=== PATIENT | female | born 1965 | race Two or more races ===

== ENCOUNTER 2019-11-14 08:08 | Inpatient (IN) | payer MEDICAID, OTHER ==
[~2019-11-14] VITALS: Ht 165.1 cm; Wt 99.3 kg
[2019-11-14] MEDS ORDERED: VANCOMYCIN 1 G PREMIX 200 ML IV ONE (09:00)
[2019-11-14] MEDS ORDERED: SODIUM CHLORIDE 0.9% 1000ML BAG (SEPSIS BOLUS) IV ONE (09:00)
[2019-11-14] MEDS ORDERED: PIPERACILLIN/TAZ 3.375G PREMIX 50 ML IV ONE (09:00)
[2019-11-14 09:17] LABS: BASOPHILS % 0.2 % (0.0-2.0); HEMATOCRIT. 45.9 % (36.0-48.0); HEMOGLOBIN. 16.1 g/dL (12.0-16.0); LYMPHOCYTES % 15.4 % (20.0-50.0); MEAN CORPUSCULAR HEMOGLOBIN 32.5 pg (28.0-32.0); MEAN CORPUSCULAR VOLUME 92.9 fL (81.0-99.0); MEAN PLATELET VOLUME 7.4 fl (7.4-10.4); NEUTROPHILS % 76.4 % (40.0-76.0); PLATELET 327 x1000/uL (130-400); RED BLOOD CELL COUNT 4.94 mill/uL (4.2-5.4); RED CELL DISTRIBUTION WIDTH 13.3 % (11.6-14.6)
[2019-11-14 09:19] LABS: CHLORIDE 105 mEq/L (98-107); PROTHROMBIN TIME 10.9 sec (9.6-11.0)
[2019-11-14 10:11] LABS: CLARITY URINE CLEAR (CLEAR); COLOR URINE YELLOW (YELLOW); KETONES URINE TRACE (NEGATIVE); LEUKOCYTE ESTERASE URINE TRACE (NEGATIVE); NITRITE URINE NEGATIVE (NEGATIVE); OCCULT BLOOD URINE NEGATIVE (NEGATIVE); PROTEIN URINE 2+ (NEGATIVE); SPECIFIC GRAVITY URINE 1.017 (1.005-1.030); UROBILINOGEN URINE 0.2 E.U./dL (0.2-1.0)
[2019-11-14] MEDS: ACETAMINOPHEN 325MG TABLET PO PRN (23:04)
[2019-11-15] MEDS ORDERED: ACETAMINOPHEN 325MG TABLET PO ONE (06:00)
[2019-11-15] MEDS: AZITHROMYCIN 500 MG TABLET PO SCH (10:39)
[2019-11-15] MEDS: ALBUTEROL 6.7GM HFA INHALER ORI SCH (10:54)
[2019-11-15] MEDS ORDERED: CEFTRIAXONE 1 G PREMIX 50 ML IV SCH (11:00)
[2019-11-15] MEDS: ENOXAPARIN 40MG/0.4ML SYR SUBCUT SCH (13:26)
[2019-11-15] MEDS: ACETAMINOPHEN 325MG TABLET PO PRN ×2 (13:27→21:44)
[2019-11-15 13:56] VITALS: BP 152/94
[2019-11-15] MEDS ORDERED: AMLO10TA80 PO (13:59)
[2019-11-15 16:00] VITALS: BP 126/73
[2019-11-15 20:00] VITALS: BP 169/89
[2019-11-15] MEDS: ASCORBIC ACID 500 MG TABLET PO SCH (20:25)
[2019-11-15] MEDS: GUAIFENESIN 600MG ER TABLET PO SCH (20:26)
[2019-11-15] MEDS: AMLODIPINE 5MG TABLET PO SCH (20:26)
[2019-11-15] MEDS: BENZONATATE 100MG CAPSULE PO PRN (21:45)
[2019-11-15] MEDS: METOPROLOL TARTRATE 50MG TABLET PO SCH (23:50)
[2019-11-16] VITALS: BP 140/57
[2019-11-16 04:00] VITALS: BP 123/74
[2019-11-16] MEDS: ACETAMINOPHEN 325MG TABLET PO PRN (04:02)
[2019-11-16 08:00] VITALS: BP 104/60
[2019-11-16] MEDS: AZITHROMYCIN 500 MG TABLET PO SCH (08:54)
[2019-11-16] MEDS: GUAIFENESIN 600MG ER TABLET PO SCH ×2 (08:54→20:22)
[2019-11-16] MEDS: ASCORBIC ACID 500 MG TABLET PO SCH ×2 (08:54→20:22)
[2019-11-16] MEDS: ZINC SULFATE 220 MG ( 50 ) CAPSULE PO SCH (08:55)
[2019-11-16] MEDS: AMLODIPINE 5MG TABLET PO SCH ×2 (09:00→20:21)
[2019-11-16] MEDS: METOPROLOL TARTRATE 50MG TABLET PO SCH ×2 (09:00→20:22)
[2019-11-16] MEDS ORDERED: CEFTRIAXONE 1,000 MG in DEXTROSE 5% WATER 50 ML IV SCH (09:00)
[2019-11-16] MEDS: BENZONATATE 100MG CAPSULE PO PRN (09:09)
[2019-11-16 12:00] VITALS: BP 104/60
[2019-11-16] MEDS: ENOXAPARIN 40MG/0.4ML SYR SUBCUT SCH (13:26)
[2019-11-16] MEDS: DOCUSATE SODIUM 250MG CAPSULE PO SCH (14:08)
[2019-11-16 16:00] VITALS: BP 146/76
[2019-11-16] MEDS: ALBUTEROL 6.7GM HFA INHALER ORI SCH (17:45)
[2019-11-16] MEDS: METHYLPREDNISOLONE SOD SUCC 40 MG/ML VIAL IV SCH (17:45)
[2019-11-16 20:00] VITALS: BP 141/82
[2019-11-17] VITALS (7 sets, daily range): BP systolic 122–134; BP diastolic 65–77
[2019-11-17] MEDS: ALBUTEROL 6.7GM HFA INHALER ORI SCH ×3 (06:00→12:00)
[2019-11-17] MEDS: ASCORBIC ACID 500 MG TABLET PO SCH ×2 (09:44→22:24)
[2019-11-17] MEDS: METHYLPREDNISOLONE SOD SUCC 40 MG/ML VIAL IV SCH ×2 (09:44→16:01)
[2019-11-17] MEDS: CEFTRIAXONE 1 G PREMIX 50 ML IV SCH (09:44)
[2019-11-17] MEDS: METOPROLOL TARTRATE 50MG TABLET PO SCH ×2 (09:45→22:24)
[2019-11-17] MEDS: GUAIFENESIN 600MG ER TABLET PO SCH ×2 (09:45→22:24)
[2019-11-17] MEDS: ZINC SULFATE 220 MG ( 50 ) CAPSULE PO SCH (09:45)
[2019-11-17] MEDS: AMLODIPINE 5MG TABLET PO SCH ×2 (09:45→22:24)
[2019-11-17] MEDS: DOCUSATE SODIUM 250MG CAPSULE PO SCH ×2 (09:45→16:01)
[2019-11-17] MEDS: AZITHROMYCIN 500 MG TABLET PO SCH (09:54)
[2019-11-17] MEDS: ENOXAPARIN 40MG/0.4ML SYR SUBCUT SCH (12:35)
[2019-11-18] VITALS: BP 138/76
[2019-11-18] MEDS: ALBUTEROL 6.7GM HFA INHALER ORI SCH ×4 (00:23→17:39)
[2019-11-18 04:00] VITALS: BP 122/78
[2019-11-18 05:38] LABS: HEMATOCRIT. 42.7 % (36.0-48.0); HEMOGLOBIN. 14.9 g/dL (12.0-16.0); LYMPHOCYTES % 10.8 % (20.0-50.0); MEAN CORPUSCULAR VOLUME 92.1 fL (81.0-99.0); MONOCYTES % 10.1 % (2.0-8.0); NEUTROPHILS % 79.1 % (40.0-76.0); PLATELET 392 x1000/uL (130-400); RED BLOOD CELL COUNT 4.64 mill/uL (4.2-5.4); RED CELL DISTRIBUTION WIDTH 13.2 % (11.6-14.6)
[2019-11-18 05:54] LABS: CHLORIDE 107 mEq/L (98-107)
[2019-11-18 06:01] LABS: PHOSPHORUS 3.4 mg/dL (2.5-4.9)
[2019-11-18 08:00] VITALS: BP 132/74
[2019-11-18] MEDS: DOCUSATE SODIUM 250MG CAPSULE PO SCH ×2 (08:06→17:40)
[2019-11-18] MEDS: AZITHROMYCIN 500 MG TABLET PO SCH (08:06)
[2019-11-18] MEDS: METHYLPREDNISOLONE SOD SUCC 40 MG/ML VIAL IV SCH ×2 (08:06→17:40)
[2019-11-18] MEDS: GUAIFENESIN 600MG ER TABLET PO SCH ×2 (08:06→21:01)
[2019-11-18] MEDS: ZINC SULFATE 220 MG ( 50 ) CAPSULE PO SCH (08:06)
[2019-11-18] MEDS: METOPROLOL TARTRATE 50MG TABLET PO SCH ×2 (08:06→21:01)
[2019-11-18] MEDS: ASCORBIC ACID 500 MG TABLET PO SCH ×2 (08:07→21:01)
[2019-11-18] MEDS: AMLODIPINE 5MG TABLET PO SCH ×2 (08:07→21:01)
[2019-11-18] MEDS: CEFTRIAXONE 1 G PREMIX 50 ML IV SCH (08:07)
[2019-11-18 12:00] VITALS: BP 113/66
[2019-11-18] MEDS: ENOXAPARIN 40MG/0.4ML SYR SUBCUT SCH (12:01)
[2019-11-18 16:00] VITALS: BP 133/63
[2019-11-18 16:37] LABS: BG BASE EXCESS -0.6 mmol/L (-2.0-2.0); BG CARBOXYHEMOGLOBIN 0.3 % (0.5-1.5); BG DEOXYHEMOGLOBIN 4.1 % (0.0-5.0); BG FRACTION INSPIRED OXYGEN 100; BG HCO3 ACT 23.2 mmol/L (22.0-26.0); BG METHEMOGLOBIN 0.3 % (0.0-1.5); BG OXYGEN SATURATION 95.9 % (92.0-98.5); BG OXYHEMOGLOBIN 95.3 % (94.0-97.0); BG PCO2 35.9 mmHg (35.0-45.0); BG PH 7.428 (7.350-7.450); BG SAMPLE SITE LEFT RADIAL; BG TOTAL HEMOGLOBIN 15.5 g/dL (12.0-18.0); BG VENT MODE MASK - NRB
[2019-11-18 20:00] VITALS: BP 148/72
[2019-11-19] VITALS (56 sets, daily range): BP systolic 70–184; BP diastolic 24–95
[2019-11-19] MEDS: ALBUTEROL 6.7GM HFA INHALER ORI SCH ×2 (00:16→05:56)
[2019-11-19] MEDS: METHYLPREDNISOLONE SOD SUCC 40 MG/ML VIAL IV SCH ×2 (09:52→17:50)
[2019-11-19] MEDS: GUAIFENESIN 600MG ER TABLET PO SCH (09:52)
[2019-11-19] MEDS: AZITHROMYCIN 500 MG TABLET PO SCH (09:52)
[2019-11-19] MEDS: METOPROLOL TARTRATE 50MG TABLET PO SCH ×2 (09:53→20:24)
[2019-11-19] MEDS ORDERED: MORPHINE SULFATE 2 MG/ML CPJ (NOT FOR IM USE) IV PRN (10:15)
[2019-11-19] MEDS ORDERED: PROPOFOL 10MG/ML 100ML 100 ML IV PRN (10:15)
[2019-11-19] MEDS: CEFTRIAXONE 1 G PREMIX 50 ML IV SCH (10:30)
[2019-11-19] MEDS: AMLODIPINE 5MG TABLET PO SCH ×2 (10:30→20:25)
[2019-11-19] MEDS: DOCUSATE SODIUM 250MG CAPSULE PO SCH ×2 (10:30→17:00)
[2019-11-19] MEDS: ASCORBIC ACID 500 MG TABLET PO SCH ×2 (10:31→21:19)
[2019-11-19] MEDS: ZINC SULFATE 220 MG ( 50 ) CAPSULE PO SCH (11:00)
[2019-11-19] MEDS: ENOXAPARIN 80MG/0.8ML SYR SUBCUT SCH ×2 (11:05→22:20)
[2019-11-19] MEDS ORDERED: LIDOCAINE HCL 1% 20ML VIAL (Pyxis) INJ ONE (13:07)
[2019-11-19 13:20] LABS: BG BASE EXCESS -3.9 mmol/L (-2.0-2.0); BG CARBOXYHEMOGLOBIN 0.3 % (0.5-1.5); BG DEOXYHEMOGLOBIN 8.1 % (0.0-5.0); BG FRACTION INSPIRED OXYGEN 100; BG HCO3 ACT 19.9 mmol/L (22.0-26.0); BG METHEMOGLOBIN 0.1 % (0.0-1.5); BG OXYGEN SATURATION 91.9 % (92.0-98.5); BG OXYHEMOGLOBIN 91.5 % (94.0-97.0); BG PH 7.399 (7.350-7.450); BG PO2 63.7 mmHg (75.0-100.0); BG SAMPLE SITE RIGHT RADIAL; BG TIDAL VOLUME(mL) 500 mL; BG TOTAL HEMOGLOBIN 14.6 g/dL (12.0-18.0); BG VENT MODE VENT - A/C; BG VENT RATE 18 set
[2019-11-19] MEDS: FENTANYL CITRATE/PF 1,000 MCG in SODIUM CHLORIDE 0.9% 80 ML IV PRN (14:42)
[2019-11-19] MEDS: MIDAZOLAM HCL 100 MG in DEXT 5% WATER 80 ML IV PRN (14:51)
[2019-11-19] MEDS: NOREPINEPHRINE 8 MG in DEXT 5% WATER 242 ML IV PRN (16:00)
[2019-11-19 17:54] LABS: HEMATOCRIT. 42.6 % (36.0-48.0); HEMOGLOBIN. 14.6 g/dL (12.0-16.0); MEAN CORPUSCULAR VOLUME 93.2 fL (81.0-99.0); MEAN PLATELET VOLUME 7.2 fl (7.4-10.4); PLATELET 429 x1000/uL (130-400); RED BLOOD CELL COUNT 4.57 mill/uL (4.2-5.4); RED CELL DISTRIBUTION WIDTH 13.4 % (11.6-14.6)
[2019-11-19 18:03] LABS: CHLORIDE 105 mEq/L (98-107)
[2019-11-19 20:33] LABS: NUCLEATED RED BLOOD CELLS 1 /100 WBC; PLATELET ESTIMATE NORMAL
[2019-11-20] VITALS (87 sets, daily range): BP systolic 101–165; BP diastolic 55–86
[2019-11-20] MEDS: MIDAZOLAM HCL 100 MG in DEXT 5% WATER 80 ML IV PRN (07:04)
[2019-11-20] MEDS: AMLODIPINE 5MG TABLET PO SCH ×2 (08:18→20:42)
[2019-11-20] MEDS: METOPROLOL TARTRATE 50MG TABLET PO SCH ×2 (08:18→20:42)
[2019-11-20] MEDS: DOCUSATE SODIUM 250MG CAPSULE PO SCH ×2 (08:18→17:00)
[2019-11-20] MEDS: METHYLPREDNISOLONE SOD SUCC 40 MG/ML VIAL IV SCH ×2 (08:19→17:26)
[2019-11-20] MEDS: ASCORBIC ACID 500 MG TABLET PO SCH ×2 (08:19→20:43)
[2019-11-20] MEDS: AZITHROMYCIN 500 MG TABLET PO SCH (08:19)
[2019-11-20] MEDS: ZINC SULFATE 220 MG ( 50 ) CAPSULE PO SCH (08:19)
[2019-11-20] MEDS: ENOXAPARIN 80MG/0.8ML SYR SUBCUT SCH ×2 (08:20→20:43)
[2019-11-20] MEDS ORDERED: LIDOCAINE HCL/PF 1% 2ML VIAL ONE (11:40)
[2019-11-20 12:09] LABS: BG BASE EXCESS -3.2 mmol/L (-2.0-2.0); BG CARBOXYHEMOGLOBIN 0.3 % (0.5-1.5); BG DEOXYHEMOGLOBIN 0.9 % (0.0-5.0); BG METHEMOGLOBIN 0.3 % (0.0-1.5); BG OXYGEN SATURATION 99.1 % (92.0-98.5); BG OXYHEMOGLOBIN 98.5 % (94.0-97.0); BG PCO2 35.1 mmHg (35.0-45.0); BG PH 7.394 (7.350-7.450); BG PO2 207.7 mmHg (75.0-100.0); BG SAMPLE SITE RIGHT RADIAL; BG TIDAL VOLUME(mL) 500 mL; BG VENT MODE VENT - A/C; BG VENT RATE 18 set
[2019-11-20] MEDS: FENTANYL CITRATE/PF 1,000 MCG in SODIUM CHLORIDE 0.9% 80 ML IV PRN (14:00)
[2019-11-20] MEDS: MIDODRINE HCL 5MG TABLET PO SCH (19:27)
[2019-11-21] VITALS (67 sets, daily range): BP systolic 85–152; BP diastolic 39–83
[2019-11-21] MEDS: MIDAZOLAM HCL 100 MG in DEXT 5% WATER 80 ML IV PRN ×2 (01:25→16:39)
[2019-11-21 05:51] LABS: BASOPHILS % 0.2 % (0.0-2.0); HEMATOCRIT. 38.8 % (36.0-48.0); HEMOGLOBIN. 13.3 g/dL (12.0-16.0); LYMPHOCYTES % 7.5 % (20.0-50.0); MEAN CORPUSCULAR HEMOGLOBIN 31.8 pg (28.0-32.0); MEAN PLATELET VOLUME 7.1 fl (7.4-10.4); NEUTROPHILS % 85.3 % (40.0-76.0); PLATELET 363 x1000/uL (130-400); RED BLOOD CELL COUNT 4.17 mill/uL (4.2-5.4); RED CELL DISTRIBUTION WIDTH 12.8 % (11.6-14.6)
[2019-11-21 06:07] LABS: CHLORIDE 109 mEq/L (98-107)
[2019-11-21] MEDS: AMLODIPINE 5MG TABLET PO SCH ×2 (08:16→21:55)
[2019-11-21] MEDS: METOPROLOL TARTRATE 50MG TABLET PO SCH ×2 (08:16→21:55)
[2019-11-21] MEDS: DOCUSATE SODIUM 250MG CAPSULE PO SCH ×2 (08:17→17:00)
[2019-11-21 08:23] LABS: BG BASE EXCESS 0.1 mmol/L (-2.0-2.0); BG DEOXYHEMOGLOBIN 7.5 % (0.0-5.0); BG HCO3 ACT 24.8 mmol/L (22.0-26.0); BG METHEMOGLOBIN 0.2 % (0.0-1.5); BG OXYGEN SATURATION 92.5 % (92.0-98.5); BG OXYHEMOGLOBIN 92.3 % (94.0-97.0); BG PCO2 40.3 mmHg (35.0-45.0); BG PH 7.407 (7.350-7.450); BG PO2 64.2 mmHg (75.0-100.0); BG SAMPLE SITE RIGHT RADIAL; BG TIDAL VOLUME(mL) 500 mL; BG TOTAL HEMOGLOBIN 12.4 g/dL (12.0-18.0); BG VENT MODE VENT - A/C; BG VENT RATE 18 set
[2019-11-21] MEDS: ZINC SULFATE 220 MG ( 50 ) CAPSULE PO SCH (09:59)
[2019-11-21] MEDS: AZITHROMYCIN 500 MG TABLET PO SCH (09:59)
[2019-11-21] MEDS: PANTOPRAZOLE SODIUM 40 MG/VIAL IV SCH (09:59)
[2019-11-21] MEDS: METHYLPREDNISOLONE SOD SUCC 40 MG/ML VIAL IV SCH ×2 (09:59→17:57)
[2019-11-21] MEDS: MIDODRINE HCL 5MG TABLET PO SCH ×3 (09:59→17:57)
[2019-11-21] MEDS: ENOXAPARIN 80MG/0.8ML SYR SUBCUT SCH ×2 (10:00→21:55)
[2019-11-21] MEDS: ASCORBIC ACID 500 MG TABLET PO SCH ×2 (10:03→21:55)
[2019-11-21] MEDS: FENTANYL CITRATE/PF 1,000 MCG in SODIUM CHLORIDE 0.9% 80 ML IV PRN (14:00)
[2019-11-22] VITALS (81 sets, daily range): BP systolic 94–157; BP diastolic 29–84
[2019-11-22 04:54] LABS: HEMATOCRIT. 36.1 % (36.0-48.0); HEMOGLOBIN. 12.5 g/dL (12.0-16.0); MEAN CORPUSCULAR HEMOGLOBIN 32.6 pg (28.0-32.0); MEAN CORPUSCULAR VOLUME 93.7 fL (81.0-99.0); MEAN PLATELET VOLUME 7.2 fl (7.4-10.4); PLATELET 332 x1000/uL (130-400); RED BLOOD CELL COUNT 3.85 mill/uL (4.2-5.4); RED CELL DISTRIBUTION WIDTH 12.8 % (11.6-14.6)
[2019-11-22 05:04] LABS: CHLORIDE 108 mEq/L (98-107)
[2019-11-22 07:22] LABS: PLATELET ESTIMATE NORMAL
[2019-11-22] MEDS: METOPROLOL TARTRATE 50MG TABLET PO SCH (09:00)
[2019-11-22] MEDS: AMLODIPINE 5MG TABLET PO SCH (09:00)
[2019-11-22] MEDS: ENOXAPARIN 80MG/0.8ML SYR SUBCUT SCH ×2 (09:02→21:19)
[2019-11-22] MEDS: ZINC SULFATE 220 MG ( 50 ) CAPSULE PO SCH (09:03)
[2019-11-22] MEDS: ASCORBIC ACID 500 MG TABLET PO SCH ×2 (09:03→21:20)
[2019-11-22] MEDS: METHYLPREDNISOLONE SOD SUCC 40 MG/ML VIAL IV SCH ×2 (09:03→16:40)
[2019-11-22] MEDS: MIDODRINE HCL 5MG TABLET PO SCH (09:03)
[2019-11-22] MEDS: DOCUSATE SODIUM 250MG CAPSULE PO SCH ×2 (09:04→16:40)
[2019-11-22] MEDS: AZITHROMYCIN 500 MG TABLET PO SCH (09:04)
[2019-11-22 09:33] LABS: BG BASE EXCESS 2.1 mmol/L (-2.0-2.0); BG CARBOXYHEMOGLOBIN 0.2 % (0.5-1.5); BG DEOXYHEMOGLOBIN 8.7 % (0.0-5.0); BG FRACTION INSPIRED OXYGEN 60; BG HCO3 ACT 26.8 mmol/L (22.0-26.0); BG METHEMOGLOBIN 0.1 % (0.0-1.5); BG OXYGEN SATURATION 91.3 % (92.0-98.5); BG PCO2 42.1 mmHg (35.0-45.0); BG PH 7.421 (7.350-7.450); BG PO2 61.7 mmHg (75.0-100.0); BG SAMPLE SITE RIGHT RADIAL; BG TIDAL VOLUME(mL) 500 mL; BG VENT MODE VENT - A/C; BG VENT RATE 18 set
[2019-11-22] MEDS: PANTOPRAZOLE SODIUM 40 MG/VIAL IV SCH (09:53)
[2019-11-22] MEDS: FENTANYL CITRATE/PF 1,000 MCG in SODIUM CHLORIDE 0.9% 80 ML IV PRN (12:48)
[2019-11-22] MEDS: MIDAZOLAM HCL 100 MG in DEXT 5% WATER 80 ML IV PRN (12:51)
[2019-11-23] VITALS (96 sets, daily range): BP systolic 91–127; BP diastolic 47–79
[2019-11-23] MEDS: FENTANYL CITRATE/PF 1,000 MCG in SODIUM CHLORIDE 0.9% 80 ML IV PRN ×2 (02:51→14:28)
[2019-11-23] MEDS: MIDAZOLAM HCL 100 MG in DEXT 5% WATER 80 ML IV PRN ×2 (02:52→15:17)
[2019-11-23 05:42] LABS: BASOPHILS % 0.2 % (0.0-2.0); HEMATOCRIT. 36.2 % (36.0-48.0); HEMOGLOBIN. 12.6 g/dL (12.0-16.0); LYMPHOCYTES % 7.8 % (20.0-50.0); MEAN CORPUSCULAR HEMOGLOBIN 32.8 pg (28.0-32.0); MEAN CORPUSCULAR VOLUME 93.9 fL (81.0-99.0); MEAN PLATELET VOLUME 7.3 fl (7.4-10.4); MONOCYTES % 6.2 % (2.0-8.0); NEUTROPHILS % 85.8 % (40.0-76.0); PLATELET 353 x1000/uL (130-400); RED BLOOD CELL COUNT 3.85 mill/uL (4.2-5.4); RED CELL DISTRIBUTION WIDTH 12.8 % (11.6-14.6)
[2019-11-23 05:58] LABS: CHLORIDE 110 mEq/L (98-107)
[2019-11-23 08:57] LABS: BG CARBOXYHEMOGLOBIN 0.5 % (0.5-1.5); BG DEOXYHEMOGLOBIN 8.5 % (0.0-5.0); BG HCO3 ACT 25.3 mmol/L (22.0-26.0); BG METHEMOGLOBIN 0.1 % (0.0-1.5); BG OXYGEN SATURATION 91.4 % (92.0-98.5); BG OXYHEMOGLOBIN 90.9 % (94.0-97.0); BG PCO2 43.3 mmHg (35.0-45.0); BG PH 7.384 (7.350-7.450); BG PO2 63.8 mmHg (75.0-100.0); BG SAMPLE SITE RIGHT RADIAL; BG TIDAL VOLUME(mL) 500 mL; BG TOTAL HEMOGLOBIN 13.7 g/dL (12.0-18.0); BG VENT MODE VENT - A/C; BG VENT RATE 18 set
[2019-11-23] MEDS: ASCORBIC ACID 500 MG TABLET PO SCH ×2 (09:31→21:17)
[2019-11-23] MEDS: ZINC SULFATE 220 MG ( 50 ) CAPSULE PO SCH (09:31)
[2019-11-23] MEDS: METHYLPREDNISOLONE SOD SUCC 40 MG/ML VIAL IV SCH ×2 (09:31→16:18)
[2019-11-23] MEDS: DOCUSATE SODIUM 250MG CAPSULE PO SCH (09:31)
[2019-11-23] MEDS: PANTOPRAZOLE SODIUM 40 MG/VIAL IV SCH (09:31)
[2019-11-23] MEDS: ENOXAPARIN 80MG/0.8ML SYR SUBCUT SCH (09:32)
[2019-11-23] MEDS ORDERED: ACETYLCYSTEINE 100MG/ML 10% VIAL 4ML INH SCH (12:00)
[2019-11-23] MEDS ORDERED: LACTULOSE 20G/30ML UDC PO NR (13:00)
[2019-11-23] MEDS ORDERED: ENOXAPARIN 100MG/ML SYR SUBCUT SCH (21:00)
[2019-11-24] VITALS (90 sets, daily range): BP systolic 98–125; BP diastolic 52–77
[2019-11-24] MEDS: MIDAZOLAM HCL 100 MG in DEXT 5% WATER 80 ML IV PRN ×3 (03:48→21:54)
[2019-11-24] MEDS: FENTANYL CITRATE/PF 1,000 MCG in SODIUM CHLORIDE 0.9% 80 ML IV PRN ×2 (03:50→11:22)
[2019-11-24 06:00] LABS: HEMATOCRIT. 36.1 % (36.0-48.0); HEMOGLOBIN. 12.2 g/dL (12.0-16.0); MEAN CORPUSCULAR HEMOGLOBIN 31.9 pg (28.0-32.0); MEAN CORPUSCULAR VOLUME 94.4 fL (81.0-99.0); MEAN PLATELET VOLUME 7.3 fl (7.4-10.4); PLATELET 350 x1000/uL (130-400); RED BLOOD CELL COUNT 3.82 mill/uL (4.2-5.4); RED CELL DISTRIBUTION WIDTH 12.8 % (11.6-14.6)
[2019-11-24 06:02] LABS: CHLORIDE 110 mEq/L (98-107)
[2019-11-24 06:12] LABS: CREATINE KINASE 22 IU/L (26-192)
[2019-11-24 07:32] LABS: PLATELET ESTIMATE NORMAL
[2019-11-24 08:56] LABS: BG BASE EXCESS -0.5 mmol/L (-2.0-2.0); BG CARBOXYHEMOGLOBIN 0.3 % (0.5-1.5); BG DEOXYHEMOGLOBIN 7.2 % (0.0-5.0); BG FRACTION INSPIRED OXYGEN 90; BG METHEMOGLOBIN 0.3 % (0.0-1.5); BG OXYGEN SATURATION 92.8 % (92.0-98.5); BG OXYHEMOGLOBIN 92.2 % (94.0-97.0); BG PCO2 44.1 mmHg (35.0-45.0); BG PH 7.371 (7.350-7.450); BG PO2 66.6 mmHg (75.0-100.0); BG SAMPLE SITE RIGHT RADIAL; BG TIDAL VOLUME(mL) 450 mL; BG VENT MODE VENT - A/C; BG VENT RATE 20 set
[2019-11-24] MEDS: METHYLPREDNISOLONE SOD SUCC 40 MG/ML VIAL IV SCH ×2 (09:04→17:27)
[2019-11-24] MEDS: PANTOPRAZOLE SODIUM 40 MG/VIAL IV SCH (09:04)
[2019-11-24] MEDS: DOCUSATE SODIUM SUGAR FREE 100MG/10ML UDC NG SCH (09:04)
[2019-11-24] MEDS: ASCORBIC ACID 500 MG TABLET PO SCH ×2 (09:04→21:05)
[2019-11-24] MEDS: ZINC SULFATE 220 MG ( 50 ) CAPSULE PO SCH (09:04)
[2019-11-24] MEDS: ENOXAPARIN 80MG/0.8ML SYR SUBCUT SCH ×2 (09:05→21:05)
[2019-11-24] MEDS ORDERED: SORBITOL 70% SOLN 30ML PO NR (10:45)
[2019-11-24] MEDS: METOCLOPRAMIDE HCL 10MG/2ML VIAL IV SCH ×2 (11:42→17:27)
[2019-11-25] VITALS (36 sets, daily range): BP systolic 72–133; BP diastolic 32–80
[2019-11-25] MEDS: METOCLOPRAMIDE HCL 10MG/2ML VIAL IV SCH ×5 (00:03→23:29)
[2019-11-25] MEDS: FENTANYL CITRATE/PF 1,000 MCG in SODIUM CHLORIDE 0.9% 80 ML IV PRN ×3 (00:18→22:07)
[2019-11-25 05:45] LABS: HEMATOCRIT. 34.3 % (36.0-48.0); HEMOGLOBIN. 11.8 g/dL (12.0-16.0); MEAN CORPUSCULAR HEMOGLOBIN 32.4 pg (28.0-32.0); MEAN CORPUSCULAR VOLUME 93.9 fL (81.0-99.0); MEAN PLATELET VOLUME 7.5 fl (7.4-10.4); PLATELET 343 x1000/uL (130-400); RED BLOOD CELL COUNT 3.65 mill/uL (4.2-5.4); RED CELL DISTRIBUTION WIDTH 12.8 % (11.6-14.6)
[2019-11-25 05:47] LABS: CHLORIDE 109 mEq/L (98-107)
[2019-11-25 08:10] LABS: PLATELET ESTIMATE NORMAL
[2019-11-25] MEDS: DOCUSATE SODIUM SUGAR FREE 100MG/10ML UDC NG SCH (08:13)
[2019-11-25] MEDS: ASCORBIC ACID 500 MG TABLET PO SCH ×2 (08:14→20:09)
[2019-11-25] MEDS: ZINC SULFATE 220 MG ( 50 ) CAPSULE PO SCH (08:14)
[2019-11-25] MEDS: METHYLPREDNISOLONE SOD SUCC 40 MG/ML VIAL IV SCH ×2 (08:14→16:27)
[2019-11-25] MEDS: ENOXAPARIN 80MG/0.8ML SYR SUBCUT SCH ×2 (08:14→20:09)
[2019-11-25] MEDS: PANTOPRAZOLE SODIUM 40 MG/VIAL IV SCH (08:14)
[2019-11-25] MEDS: MIDAZOLAM HCL 100 MG in DEXT 5% WATER 80 ML IV PRN ×2 (08:22→22:08)
[2019-11-25 09:30] LABS: BG BASE EXCESS -0.1 mmol/L (-2.0-2.0); BG CARBOXYHEMOGLOBIN 0.2 % (0.5-1.5); BG DEOXYHEMOGLOBIN 5.3 % (0.0-5.0); BG FRACTION INSPIRED OXYGEN 90; BG HCO3 ACT 25.1 mmol/L (22.0-26.0); BG METHEMOGLOBIN 0.3 % (0.0-1.5); BG OXYGEN SATURATION 94.7 % (92.0-98.5); BG OXYHEMOGLOBIN 94.2 % (94.0-97.0); BG PCO2 42.9 mmHg (35.0-45.0); BG PH 7.385 (7.350-7.450); BG PO2 76.3 mmHg (75.0-100.0); BG SAMPLE SITE RIGHT RADIAL; BG TIDAL VOLUME(mL) 450 mL; BG TOTAL HEMOGLOBIN 12.5 g/dL (12.0-18.0); BG VENT MODE VENT- PRVC; BG VENT RATE 20 set
[2019-11-25] MEDS: ACETAMINOPHEN 650MG/20.3ML UDC PO PRN (12:18)
[2019-11-25] MEDS ORDERED: SODIUM BICARBONATE 4% (2.4MEQ) 5ML VIAL IV ONE (13:36)
[2019-11-25] MEDS ORDERED: LIDOCAINE HCL 1% 20ML VIAL (Pyxis) INJ ONE (13:36)
[2019-11-25] MEDS ORDERED: CEFTRIAXONE 1 G PREMIX 50 ML IV SCH (15:00)
[2019-11-26] VITALS (46 sets, daily range): BP systolic 89–165; BP diastolic 50–84
[2019-11-26] MEDS: METOCLOPRAMIDE HCL 10MG/2ML VIAL IV SCH ×4 (05:09→23:40)
[2019-11-26 05:32] LABS: BASOPHILS % 0.3 % (0.0-2.0); LYMPHOCYTES % 7.4 % (20.0-50.0); MEAN CORPUSCULAR HEMOGLOBIN 32.7 pg (28.0-32.0); MEAN CORPUSCULAR VOLUME 95.1 fL (81.0-99.0); MEAN PLATELET VOLUME 7.9 fl (7.4-10.4); MONOCYTES % 4.4 % (2.0-8.0); NEUTROPHILS % 87.9 % (40.0-76.0); PLATELET 331 x1000/uL (130-400); RED BLOOD CELL COUNT 3.68 mill/uL (4.2-5.4); RED CELL DISTRIBUTION WIDTH 12.9 % (11.6-14.6)
[2019-11-26 05:37] LABS: CHLORIDE 108 mEq/L (98-107)
[2019-11-26] MEDS: ENOXAPARIN 80MG/0.8ML SYR SUBCUT SCH ×2 (09:00→21:26)
[2019-11-26] MEDS: DOCUSATE SODIUM SUGAR FREE 100MG/10ML UDC NG SCH (09:00)
[2019-11-26] MEDS: ASCORBIC ACID 500 MG TABLET PO SCH ×3 (09:00→21:35)
[2019-11-26] MEDS: ZINC SULFATE 220 MG ( 50 ) CAPSULE PO SCH (09:00)
[2019-11-26] MEDS: PANTOPRAZOLE SODIUM 40 MG/VIAL IV SCH (09:00)
[2019-11-26] MEDS: METHYLPREDNISOLONE SOD SUCC 40 MG/ML VIAL IV SCH ×2 (09:00→17:02)
[2019-11-26 09:42] LABS: BG BASE EXCESS 0.2 mmol/L (-2.0-2.0); BG CARBOXYHEMOGLOBIN 0.3 % (0.5-1.5); BG DEOXYHEMOGLOBIN 9.8 % (0.0-5.0); BG FRACTION INSPIRED OXYGEN 90; BG HCO3 ACT 24.9 mmol/L (22.0-26.0); BG METHEMOGLOBIN 0.1 % (0.0-1.5); BG OXYGEN SATURATION 90.2 % (92.0-98.5); BG OXYHEMOGLOBIN 89.8 % (94.0-97.0); BG PCO2 40.8 mmHg (35.0-45.0); BG PH 7.404 (7.350-7.450); BG PO2 57.4 mmHg (75.0-100.0); BG SAMPLE SITE RIGHT RADIAL; BG TIDAL VOLUME(mL) 450 mL; BG TOTAL HEMOGLOBIN 12.8 g/dL (12.0-18.0); BG VENT MODE VENT- PRVC; BG VENT RATE 20 set
[2019-11-26] MEDS: MEROPENEM 500 MG in SODIUM CHLORIDE 0.9% 50 ML IV SCH ×2 (14:58→21:26)
[2019-11-26] MEDS: FENTANYL CITRATE/PF 1,000 MCG in SODIUM CHLORIDE 0.9% 80 ML IV PRN (20:14)
[2019-11-26] MEDS: MIDAZOLAM HCL 100 MG in DEXT 5% WATER 80 ML IV PRN (20:19)
[2019-11-27] VITALS (93 sets, daily range): BP systolic 72–117; BP diastolic 30–75
[2019-11-27 06:19] LABS: HEMATOCRIT. 35.5 % (36.0-48.0); HEMOGLOBIN. 12.1 g/dL (12.0-16.0); MEAN CORPUSCULAR HEMOGLOBIN 32.6 pg (28.0-32.0); MEAN CORPUSCULAR VOLUME 95.6 fL (81.0-99.0); MEAN PLATELET VOLUME 8.2 fl (7.4-10.4); PLATELET 301 x1000/uL (130-400); RED BLOOD CELL COUNT 3.71 mill/uL (4.2-5.4)
[2019-11-27] MEDS: MEROPENEM 500 MG in SODIUM CHLORIDE 0.9% 50 ML IV SCH ×3 (06:20→21:34)
[2019-11-27] MEDS: METOCLOPRAMIDE HCL 10MG/2ML VIAL IV SCH ×3 (06:20→17:08)
[2019-11-27 06:28] LABS: CHLORIDE 109 mEq/L (98-107)
[2019-11-27] MEDS: MIDAZOLAM HCL 100 MG in DEXT 5% WATER 80 ML IV PRN ×2 (07:31→17:34)
[2019-11-27] MEDS: FENTANYL CITRATE/PF 1,000 MCG in SODIUM CHLORIDE 0.9% 80 ML IV PRN ×2 (07:53→17:34)
[2019-11-27] MEDS: PANTOPRAZOLE SODIUM 40 MG/VIAL IV SCH (08:49)
[2019-11-27] MEDS: METHYLPREDNISOLONE SOD SUCC 40 MG/ML VIAL IV SCH ×2 (08:49→17:08)
[2019-11-27] MEDS: DOCUSATE SODIUM SUGAR FREE 100MG/10ML UDC NG SCH (08:51)
[2019-11-27] MEDS: ASCORBIC ACID 500 MG TABLET PO SCH ×2 (08:51→21:31)
[2019-11-27] MEDS: ZINC SULFATE 220 MG ( 50 ) CAPSULE PO SCH (08:51)
[2019-11-27] MEDS: ENOXAPARIN 80MG/0.8ML SYR SUBCUT SCH ×2 (08:51→21:32)
[2019-11-27 08:56] LABS: BG BASE EXCESS 4.5 mmol/L (-2.0-2.0); BG CARBOXYHEMOGLOBIN 0.3 % (0.5-1.5); BG DEOXYHEMOGLOBIN 6.7 % (0.0-5.0); BG FRACTION INSPIRED OXYGEN 100; BG HCO3 ACT 31.3 mmol/L (22.0-26.0); BG METHEMOGLOBIN 0.2 % (0.0-1.5); BG OXYGEN SATURATION 93.3 % (92.0-98.5); BG OXYHEMOGLOBIN 92.8 % (94.0-97.0); BG PO2 69.4 mmHg (75.0-100.0); BG SAMPLE SITE RIGHT RADIAL; BG TIDAL VOLUME(mL) 450 mL; BG TOTAL HEMOGLOBIN 11.4 g/dL (12.0-18.0); BG VENT MODE PRVC; BG VENT RATE 20 set
[2019-11-27 10:00] LABS: PLATELET ESTIMATE NORMAL
[2019-11-27 18:51] LABS: BG BASE EXCESS 2.4 mmol/L (-2.0-2.0); BG CARBOXYHEMOGLOBIN 0.1 % (0.5-1.5); BG FRACTION INSPIRED OXYGEN 100; BG HCO3 ACT 28.7 mmol/L (22.0-26.0); BG METHEMOGLOBIN 0.3 % (0.0-1.5); BG OXYGEN SATURATION 83.9 % (92.0-98.5); BG OXYHEMOGLOBIN 83.6 % (94.0-97.0); BG PCO2 51.8 mmHg (35.0-45.0); BG PH 7.361 (7.350-7.450); BG PO2 49.3 mmHg (75.0-100.0); BG SAMPLE SITE RIGHT RADIAL; BG TIDAL VOLUME(mL) 450 mL; BG TOTAL HEMOGLOBIN 12.4 g/dL (12.0-18.0); BG VENT MODE VENT - PRVC; BG VENT RATE 20 set
[2019-11-27 22:08] LABS: BG CARBOXYHEMOGLOBIN 0.3 % (0.5-1.5); BG DEOXYHEMOGLOBIN 11.4 % (0.0-5.0); BG FRACTION INSPIRED OXYGEN 100; BG HCO3 ACT 26.4 mmol/L (22.0-26.0); BG METHEMOGLOBIN 0.2 % (0.0-1.5); BG OXYGEN SATURATION 88.5 % (92.0-98.5); BG OXYHEMOGLOBIN 88.1 % (94.0-97.0); BG PCO2 45.5 mmHg (35.0-45.0); BG PH 7.382 (7.350-7.450); BG PO2 54.5 mmHg (75.0-100.0); BG SAMPLE SITE RIGHT RADIAL; BG TIDAL VOLUME(mL) 450 mL; BG TOTAL HEMOGLOBIN 12.4 g/dL (12.0-18.0); BG VENT MODE VENT - A/C; BG VENT RATE 20 set
[2019-11-28] VITALS (93 sets, daily range): BP systolic 72–176; BP diastolic 35–127
[2019-11-28] MEDS: METOCLOPRAMIDE HCL 10MG/2ML VIAL IV SCH ×4 (00:51→17:06)
[2019-11-28] MEDS: MIDAZOLAM HCL 100 MG in DEXT 5% WATER 80 ML IV PRN ×3 (01:33→20:32)
[2019-11-28] MEDS: FENTANYL CITRATE/PF 1,000 MCG in SODIUM CHLORIDE 0.9% 80 ML IV PRN ×3 (04:24→19:26)
[2019-11-28 05:01] LABS: HEMATOCRIT. 35.3 % (36.0-48.0); HEMOGLOBIN. 12.1 g/dL (12.0-16.0); MEAN CORPUSCULAR HEMOGLOBIN 32.2 pg (28.0-32.0); MEAN CORPUSCULAR VOLUME 94.3 fL (81.0-99.0); MEAN PLATELET VOLUME 7.9 fl (7.4-10.4); PLATELET 353 x1000/uL (130-400); RED BLOOD CELL COUNT 3.75 mill/uL (4.2-5.4); RED CELL DISTRIBUTION WIDTH 12.9 % (11.6-14.6)
[2019-11-28 05:16] LABS: CHLORIDE 108 mEq/L (98-107)
[2019-11-28] MEDS: MEROPENEM 500 MG in SODIUM CHLORIDE 0.9% 50 ML IV SCH ×3 (06:01→22:40)
[2019-11-28 07:06] LABS: PLATELET ESTIMATE NORMAL
[2019-11-28] MEDS: ACETAMINOPHEN 325MG TABLET PO PRN (08:05)
[2019-11-28] MEDS: PANTOPRAZOLE SODIUM 40 MG/VIAL IV SCH (08:05)
[2019-11-28] MEDS: ASCORBIC ACID 500 MG TABLET PO SCH ×2 (08:05→20:44)
[2019-11-28] MEDS: METHYLPREDNISOLONE SOD SUCC 40 MG/ML VIAL IV SCH ×2 (08:06→17:06)
[2019-11-28] MEDS: DOCUSATE SODIUM SUGAR FREE 100MG/10ML UDC NG SCH (08:06)
[2019-11-28] MEDS: ZINC SULFATE 220 MG ( 50 ) CAPSULE PO SCH (08:06)
[2019-11-28] MEDS: ENOXAPARIN 80MG/0.8ML SYR SUBCUT SCH ×2 (08:07→20:45)
[2019-11-28 08:49] LABS: BG BASE EXCESS 2.3 mmol/L (-2.0-2.0); BG CARBOXYHEMOGLOBIN 0.1 % (0.5-1.5); BG DEOXYHEMOGLOBIN 11.5 % (0.0-5.0); BG FRACTION INSPIRED OXYGEN 100; BG HCO3 ACT 31.8 mmol/L (22.0-26.0); BG METHEMOGLOBIN 0.3 % (0.0-1.5); BG OXYGEN SATURATION 88.5 % (92.0-98.5); BG OXYHEMOGLOBIN 88.1 % (94.0-97.0); BG PCO2 73.3 mmHg (35.0-45.0); BG PH 7.255 (7.350-7.450); BG PO2 61.6 mmHg (75.0-100.0); BG SAMPLE SITE RIGHT RADIAL; BG TIDAL VOLUME(mL) 450 mL; BG TOTAL HEMOGLOBIN 14.6 g/dL (12.0-18.0); BG VENT MODE PRVC; BG VENT RATE 20 set
[2019-11-28] MEDS: NOREPINEPHRINE 8 MG in DEXT 5% WATER 242 ML IV PRN (11:26)
[2019-11-28] MEDS: MIDODRINE HCL 5MG TABLET PO SCH ×2 (12:00→17:00)
[2019-11-28 15:43] LABS: BG BASE EXCESS -3.3 mmol/L (-2.0-2.0); BG CARBOXYHEMOGLOBIN 0.5 % (0.5-1.5); BG DEOXYHEMOGLOBIN 3.5 % (0.0-5.0); BG FRACTION INSPIRED OXYGEN 100; BG HCO3 ACT 22.3 mmol/L (22.0-26.0); BG METHEMOGLOBIN 0.2 % (0.0-1.5); BG OXYGEN SATURATION 96.5 % (92.0-98.5); BG OXYHEMOGLOBIN 95.8 % (94.0-97.0); BG PCO2 41.9 mmHg (35.0-45.0); BG PH 7.343 (7.350-7.450); BG PO2 85.6 mmHg (75.0-100.0); BG SAMPLE SITE RIGHT RADIAL; BG TIDAL VOLUME(mL) 500 mL; BG TOTAL HEMOGLOBIN 14.7 g/dL (12.0-18.0); BG VENT MODE VENT - A/C PRVC; BG VENT RATE 24 set
[2019-11-29] VITALS (92 sets, daily range): BP systolic 87–152; BP diastolic 42–99
[2019-11-29] MEDS: METOCLOPRAMIDE HCL 10MG/2ML VIAL IV SCH ×5 (00:17→23:41)
[2019-11-29 05:47] LABS: HEMOGLOBIN. 12.4 g/dL (12.0-16.0); MEAN CORPUSCULAR HEMOGLOBIN 32.6 pg (28.0-32.0); MEAN CORPUSCULAR VOLUME 94.9 fL (81.0-99.0); MEAN PLATELET VOLUME 7.9 fl (7.4-10.4); PLATELET 398 x1000/uL (130-400); RED CELL DISTRIBUTION WIDTH 13.4 % (11.6-14.6)
[2019-11-29] MEDS: FENTANYL CITRATE/PF 1,000 MCG in SODIUM CHLORIDE 0.9% 80 ML IV PRN ×3 (06:16→23:09)
[2019-11-29 06:21] LABS: CHLORIDE 105 mEq/L (98-107)
[2019-11-29] MEDS: MEROPENEM 500 MG in SODIUM CHLORIDE 0.9% 50 ML IV SCH ×3 (06:56→21:49)
[2019-11-29] MEDS: MIDAZOLAM HCL 100 MG in DEXT 5% WATER 80 ML IV PRN ×2 (07:06→17:55)
[2019-11-29] MEDS: DOCUSATE SODIUM SUGAR FREE 100MG/10ML UDC NG SCH (08:00)
[2019-11-29] MEDS: METHYLPREDNISOLONE SOD SUCC 40 MG/ML VIAL IV SCH (08:00)
[2019-11-29] MEDS: ASCORBIC ACID 500 MG TABLET PO SCH ×2 (08:01→21:49)
[2019-11-29] MEDS: PANTOPRAZOLE SODIUM 40 MG/VIAL IV SCH (08:01)
[2019-11-29] MEDS: ZINC SULFATE 220 MG ( 50 ) CAPSULE PO SCH (08:01)
[2019-11-29] MEDS: MIDODRINE HCL 5MG TABLET PO SCH ×3 (08:03→16:30)
[2019-11-29] MEDS ORDERED: SORBITOL 70% SOLN 30ML PO SCH (11:15)
[2019-11-29 12:27] LABS: PLATELET ESTIMATE NORMAL
[2019-11-29] MEDS: ENOXAPARIN 80MG/0.8ML SYR SUBCUT SCH ×2 (13:06→21:50)
[2019-11-29 22:36] LABS: BG BASE EXCESS 4.5 mmol/L (-2.0-2.0); BG CARBOXYHEMOGLOBIN 0.3 % (0.5-1.5); BG DEOXYHEMOGLOBIN 13.7 % (0.0-5.0); BG FRACTION INSPIRED OXYGEN 100; BG HCO3 ACT 32.4 mmol/L (22.0-26.0); BG METHEMOGLOBIN 0.2 % (0.0-1.5); BG OXYGEN SATURATION 86.2 % (92.0-98.5); BG OXYHEMOGLOBIN 85.8 % (94.0-97.0); BG PCO2 61.2 mmHg (35.0-45.0); BG PH 7.342 (7.350-7.450); BG PO2 52.9 mmHg (75.0-100.0); BG SAMPLE SITE LEFT RADIAL; BG TIDAL VOLUME(mL) 450 mL; BG TOTAL HEMOGLOBIN 16.2 g/dL (12.0-18.0); BG VENT MODE VENT - A/C PRVC; BG VENT RATE 28 set
[2019-11-30] VITALS (81 sets, daily range): BP systolic 86–172; BP diastolic 44–106
[2019-11-30] MEDS: ACETAMINOPHEN 650MG/20.3ML UDC PO PRN ×3 (02:15→13:32)
[2019-11-30] MEDS: FENTANYL CITRATE/PF 2,500 MCG in SODIUM CHLORIDE 0.9% 200 ML IV PRN ×3 (03:41→21:24)
[2019-11-30] MEDS: MIDAZOLAM HCL 100 MG in DEXT 5% WATER 80 ML IV PRN ×2 (03:42→14:28)
[2019-11-30] MEDS: METOCLOPRAMIDE HCL 10MG/2ML VIAL IV SCH ×3 (05:39→18:38)
[2019-11-30] MEDS: MEROPENEM 500 MG in SODIUM CHLORIDE 0.9% 50 ML IV SCH ×3 (05:39→21:23)
[2019-11-30 05:53] LABS: BASOPHILS % 0.6 % (0.0-2.0); EOSINOPHILS % 1.4 % (0.0-5.0); HEMATOCRIT. 37.2 % (36.0-48.0); HEMOGLOBIN. 12.6 g/dL (12.0-16.0); LYMPHOCYTES % 8.2 % (20.0-50.0); MEAN CORPUSCULAR HEMOGLOBIN 32.6 pg (28.0-32.0); MEAN CORPUSCULAR VOLUME 96.3 fL (81.0-99.0); MEAN PLATELET VOLUME 7.9 fl (7.4-10.4); MONOCYTES % 5.9 % (2.0-8.0); NEUTROPHILS % 83.9 % (40.0-76.0); PLATELET 391 x1000/uL (130-400); RED BLOOD CELL COUNT 3.87 mill/uL (4.2-5.4); RED CELL DISTRIBUTION WIDTH 13.3 % (11.6-14.6)
[2019-11-30 05:59] LABS: CHLORIDE 103 mEq/L (98-107)
[2019-11-30 08:10] LABS: BG BASE EXCESS 6.2 mmol/L (-2.0-2.0); BG CARBOXYHEMOGLOBIN 0.3 % (0.5-1.5); BG DEOXYHEMOGLOBIN 9.6 % (0.0-5.0); BG FRACTION INSPIRED OXYGEN 100; BG HCO3 ACT 34.4 mmol/L (22.0-26.0); BG METHEMOGLOBIN 0.7 % (0.0-1.5); BG OXYGEN SATURATION 90.3 % (92.0-98.5); BG OXYHEMOGLOBIN 89.4 % (94.0-97.0); BG PCO2 68.7 mmHg (35.0-45.0); BG PH 7.317 (7.350-7.450); BG PO2 60.1 mmHg (75.0-100.0); BG SAMPLE SITE RIGHT RADIAL; BG TIDAL VOLUME(mL) 450 mL; BG TOTAL HEMOGLOBIN 12.4 g/dL (12.0-18.0); BG VENT MODE VENT- PRVC; BG VENT RATE 30 set
[2019-11-30] MEDS: METHYLPREDNISOLONE SOD SUCC 40 MG/ML VIAL IV SCH (08:10)
[2019-11-30] MEDS: PANTOPRAZOLE SODIUM 40 MG/VIAL IV SCH (08:10)
[2019-11-30] MEDS: ASCORBIC ACID 500 MG TABLET PO SCH ×2 (08:10→20:47)
[2019-11-30] MEDS: DOCUSATE SODIUM SUGAR FREE 100MG/10ML UDC NG SCH (08:10)
[2019-11-30] MEDS: MIDODRINE HCL 5MG TABLET PO SCH ×3 (08:11→18:38)
[2019-11-30] MEDS: ENOXAPARIN 80MG/0.8ML SYR SUBCUT SCH ×2 (08:11→20:47)
[2019-11-30] MEDS: ZINC SULFATE 220 MG ( 50 ) CAPSULE PO SCH (08:11)
[2019-11-30] MEDS: ALBUTEROL 6.7GM HFA INHALER ORI SCH ×2 (15:37→20:45)
[2019-12-01] VITALS (89 sets, daily range): BP systolic 88–123; BP diastolic 46–71
[2019-12-01] MEDS: METOCLOPRAMIDE HCL 10MG/2ML VIAL IV SCH ×4 (00:27→18:25)
[2019-12-01] MEDS: ALBUTEROL 6.7GM HFA INHALER ORI SCH ×7 (00:40→20:40)
[2019-12-01] MEDS: MIDAZOLAM HCL 100 MG in DEXT 5% WATER 80 ML IV PRN ×3 (00:49→23:06)
[2019-12-01] MEDS: MEROPENEM 500 MG in SODIUM CHLORIDE 0.9% 50 ML IV SCH ×3 (06:02→22:05)
[2019-12-01 06:09] LABS: CHLORIDE 104 mEq/L (98-107)
[2019-12-01] MEDS: FENTANYL CITRATE/PF 2,500 MCG in SODIUM CHLORIDE 0.9% 200 ML IV PRN ×4 (06:15→15:17)
[2019-12-01 08:50] LABS: BG BASE EXCESS 5.6 mmol/L (-2.0-2.0); BG FRACTION INSPIRED OXYGEN 100; BG HCO3 ACT 32.8 mmol/L (22.0-26.0); BG METHEMOGLOBIN 0.3 % (0.0-1.5); BG OXYHEMOGLOBIN 87.7 % (94.0-97.0); BG PCO2 61.3 mmHg (35.0-45.0); BG PH 7.346 (7.350-7.450); BG PO2 54.1 mmHg (75.0-100.0); BG SAMPLE SITE RIGHT RADIAL; BG TIDAL VOLUME(mL) 450 mL; BG TOTAL HEMOGLOBIN 11.2 g/dL (12.0-18.0); BG VENT MODE PRVC; BG VENT RATE 28 set
[2019-12-01] MEDS: METHYLPREDNISOLONE SOD SUCC 40 MG/ML VIAL IV SCH (09:22)
[2019-12-01] MEDS: DOCUSATE SODIUM SUGAR FREE 100MG/10ML UDC NG SCH (09:22)
[2019-12-01] MEDS: PANTOPRAZOLE SODIUM 40 MG/VIAL IV SCH (09:22)
[2019-12-01] MEDS: ZINC SULFATE 220 MG ( 50 ) CAPSULE PO SCH (09:22)
[2019-12-01] MEDS: MIDODRINE HCL 5MG TABLET PO SCH ×3 (09:24→18:24)
[2019-12-01] MEDS: ASCORBIC ACID 500 MG TABLET PO SCH ×2 (09:24→21:18)
[2019-12-01] MEDS: ENOXAPARIN 80MG/0.8ML SYR SUBCUT SCH ×2 (09:24→21:20)
[2019-12-01 10:38] LABS: BASOPHILS % 0.2 % (0.0-2.0); EOSINOPHILS % 2.6 % (0.0-5.0); HEMATOCRIT. 34.4 % (36.0-48.0); HEMOGLOBIN. 11.6 g/dL (12.0-16.0); LYMPHOCYTES % 9.1 % (20.0-50.0); MEAN CORPUSCULAR HEMOGLOBIN 32.4 pg (28.0-32.0); MEAN CORPUSCULAR VOLUME 96.1 fL (81.0-99.0); MEAN PLATELET VOLUME 7.6 fl (7.4-10.4); MONOCYTES % 4.6 % (2.0-8.0); NEUTROPHILS % 83.5 % (40.0-76.0); PLATELET 265 x1000/uL (130-400); RED BLOOD CELL COUNT 3.58 mill/uL (4.2-5.4); RED CELL DISTRIBUTION WIDTH 13.3 % (11.6-14.6)
[2019-12-01] MEDS: PROPOFOL 10MG/ML 100ML 100 ML IV PRN ×2 (15:17→18:24)
[2019-12-01 17:18] LABS: BG BASE EXCESS 1.2 mmol/L (-2.0-2.0); BG CARBOXYHEMOGLOBIN 0.2 % (0.5-1.5); BG DEOXYHEMOGLOBIN 8.8 % (0.0-5.0); BG FRACTION INSPIRED OXYGEN 100; BG HCO3 ACT 30.5 mmol/L (22.0-26.0); BG METHEMOGLOBIN 0.2 % (0.0-1.5); BG OXYGEN SATURATION 91.2 % (92.0-98.5); BG OXYHEMOGLOBIN 90.8 % (94.0-97.0); BG PCO2 75.1 mmHg (35.0-45.0); BG PH 7.227 (7.350-7.450); BG PO2 66.7 mmHg (75.0-100.0); BG SAMPLE SITE RIGHT RADIAL; BG TIDAL VOLUME(mL) 500 mL; BG TOTAL HEMOGLOBIN 11.9 g/dL (12.0-18.0); BG VENT MODE VENT - A/C PRVC; BG VENT RATE 30 set
[2019-12-01] MEDS: NOREPINEPHRINE 8 MG in DEXT 5% WATER 242 ML IV PRN (22:11)
[2019-12-02] VITALS (94 sets, daily range): BP systolic 98–152; BP diastolic 52–114
[2019-12-02] MEDS: PROPOFOL 10MG/ML 100ML 100 ML IV PRN ×3 (01:48→15:13)
[2019-12-02 05:06] LABS: HEMATOCRIT. 33.8 % (36.0-48.0); HEMOGLOBIN. 11.2 g/dL (12.0-16.0); MEAN CORPUSCULAR HEMOGLOBIN 31.9 pg (28.0-32.0); MEAN CORPUSCULAR VOLUME 96.2 fL (81.0-99.0); MEAN PLATELET VOLUME 7.8 fl (7.4-10.4); PLATELET 341 x1000/uL (130-400); RED BLOOD CELL COUNT 3.51 mill/uL (4.2-5.4); RED CELL DISTRIBUTION WIDTH 13.2 % (11.6-14.6)
[2019-12-02 05:13] LABS: CHLORIDE 103 mEq/L (98-107)
[2019-12-02] MEDS: METOCLOPRAMIDE HCL 10MG/2ML VIAL IV SCH ×5 (05:33→23:50)
[2019-12-02 08:09] LABS: BG BASE EXCESS 3.7 mmol/L (-2.0-2.0); BG CARBOXYHEMOGLOBIN 0.3 % (0.5-1.5); BG DEOXYHEMOGLOBIN 1.8 % (0.0-5.0); BG FRACTION INSPIRED OXYGEN 100; BG HCO3 ACT 35.6 mmol/L (22.0-26.0); BG METHEMOGLOBIN 0.4 % (0.0-1.5); BG OXYGEN SATURATION 98.2 % (92.0-98.5); BG OXYHEMOGLOBIN 97.5 % (94.0-97.0); BG PCO2 105.8 mmHg (35.0-45.0); BG PH 7.145 (7.350-7.450); BG PO2 132.5 mmHg (75.0-100.0); BG SAMPLE SITE RIGHT RADIAL; BG TIDAL VOLUME(mL) 500 mL; BG VENT MODE VENT-PRVC; BG VENT RATE 30 set
[2019-12-02] MEDS: ALBUTEROL 6.7GM HFA INHALER ORI SCH ×3 (08:24→15:35)
[2019-12-02] MEDS: FENTANYL CITRATE/PF 2,500 MCG in SODIUM CHLORIDE 0.9% 200 ML IV PRN (08:56)
[2019-12-02] MEDS: MIDAZOLAM HCL 100 MG in DEXT 5% WATER 80 ML IV PRN ×2 (08:57→20:26)
[2019-12-02] MEDS: DOCUSATE SODIUM SUGAR FREE 100MG/10ML UDC NG SCH (08:58)
[2019-12-02] MEDS: ENOXAPARIN 80MG/0.8ML SYR SUBCUT SCH ×2 (08:58→21:16)
[2019-12-02] MEDS: ZINC SULFATE 220 MG ( 50 ) CAPSULE PO SCH (08:59)
[2019-12-02] MEDS: MIDODRINE HCL 5MG TABLET PO SCH ×3 (08:59→21:17)
[2019-12-02] MEDS: METHYLPREDNISOLONE SOD SUCC 40 MG/ML VIAL IV SCH (08:59)
[2019-12-02] MEDS: PANTOPRAZOLE SODIUM 40 MG/VIAL IV SCH (08:59)
[2019-12-02] MEDS: ASCORBIC ACID 500 MG TABLET PO SCH ×2 (09:00→21:16)
[2019-12-02 09:41] LABS: PLATELET ESTIMATE NORMAL
[2019-12-02] MEDS ORDERED: SORBITOL 70% SOLN 30ML PO SCH (11:00)
[2019-12-02] MEDS ORDERED: NA PHOS,M-B/NA PHOS,DI-BA ENEMA 118ML PR SCH (11:00)
[2019-12-02] MEDS ORDERED: SODIUM POLYSTYRENE SULFONATE 15 G/60 ML BOT PO SCH (11:00)
[2019-12-02 13:38] LABS: BG BASE EXCESS 3.2 mmol/L (-2.0-2.0); BG CARBOXYHEMOGLOBIN 0.1 % (0.5-1.5); BG DEOXYHEMOGLOBIN 0.8 % (0.0-5.0); BG HCO3 ACT 35.8 mmol/L (22.0-26.0); BG METHEMOGLOBIN 0.5 % (0.0-1.5); BG OXYGEN SATURATION 99.2 % (92.0-98.5); BG OXYHEMOGLOBIN 98.6 % (94.0-97.0); BG PCO2 111.9 mmHg (35.0-45.0); BG PH 7.123 (7.350-7.450); BG SAMPLE SITE RIGHT RADIAL; BG TIDAL VOLUME(mL) 550 mL; BG TOTAL HEMOGLOBIN 12.6 g/dL (12.0-18.0); BG VENT MODE VENT - A/C; BG VENT RATE 30 set
[2019-12-02] MEDS ORDERED: REMDESIVIR 200 MG in SODIUM CHLORIDE 0.9% 250 ML IV SCH (14:00)
[2019-12-03] VITALS (97 sets, daily range): BP systolic 67–165; BP diastolic 33–128
[2019-12-03] MEDS: ALBUTEROL 6.7GM HFA INHALER ORI SCH ×6 (00:10→20:28)
[2019-12-03] MEDS: PROPOFOL 10MG/ML 100ML 100 ML IV PRN ×4 (03:26→23:09)
[2019-12-03 05:35] LABS: BASOPHILS % 0.6 % (0.0-2.0); CHLORIDE 101 mEq/L (98-107); EOSINOPHILS % 0.6 % (0.0-5.0); HEMOGLOBIN. 11.5 g/dL (12.0-16.0); LYMPHOCYTES % 8.7 % (20.0-50.0); MEAN CORPUSCULAR HEMOGLOBIN 32.1 pg (28.0-32.0); MEAN CORPUSCULAR VOLUME 95.2 fL (81.0-99.0); MEAN PLATELET VOLUME 7.8 fl (7.4-10.4); MONOCYTES % 5.2 % (2.0-8.0); NEUTROPHILS % 84.9 % (40.0-76.0); PLATELET 283 x1000/uL (130-400); RED BLOOD CELL COUNT 3.58 mill/uL (4.2-5.4); RED CELL DISTRIBUTION WIDTH 12.9 % (11.6-14.6)
[2019-12-03] MEDS: MIDODRINE HCL 5MG TABLET PO SCH ×3 (06:26→21:00)
[2019-12-03] MEDS: METOCLOPRAMIDE HCL 10MG/2ML VIAL IV SCH ×4 (06:26→23:08)
[2019-12-03] MEDS: MIDAZOLAM HCL 100 MG in DEXT 5% WATER 80 ML IV PRN ×2 (06:29→17:21)
[2019-12-03 08:09] LABS: BG SAMPLE SITE RIGHT RADIAL; BG TIDAL VOLUME(mL) 550 mL; BG VENT MODE PRVC; BG VENT RATE 30 set
[2019-12-03 08:10] LABS: BG BASE EXCESS 8.3 mmol/L (-2.0-2.0); BG CARBOXYHEMOGLOBIN 0.3 % (0.5-1.5); BG DEOXYHEMOGLOBIN 2.7 % (0.0-5.0); BG FRACTION INSPIRED OXYGEN 90; BG HCO3 ACT 33.3 mmol/L (22.0-26.0); BG METHEMOGLOBIN 0.2 % (0.0-1.5); BG OXYGEN SATURATION 97.3 % (92.0-98.5); BG OXYHEMOGLOBIN 96.8 % (94.0-97.0); BG PCO2 48.5 mmHg (35.0-45.0); BG PH 7.455 (7.350-7.450); BG PO2 89.2 mmHg (75.0-100.0); BG TOTAL HEMOGLOBIN 10.7 g/dL (12.0-18.0)
[2019-12-03] MEDS: DOCUSATE SODIUM SUGAR FREE 100MG/10ML UDC NG SCH (09:17)
[2019-12-03] MEDS: METHYLPREDNISOLONE SOD SUCC 40 MG/ML VIAL IV SCH (09:17)
[2019-12-03] MEDS: ZINC SULFATE 220 MG ( 50 ) CAPSULE PO SCH (09:17)
[2019-12-03] MEDS: PANTOPRAZOLE SODIUM 40 MG/VIAL IV SCH (09:17)
[2019-12-03] MEDS: ASCORBIC ACID 500 MG TABLET PO SCH ×2 (09:17→21:00)
[2019-12-03] MEDS: ENOXAPARIN 80MG/0.8ML SYR SUBCUT SCH ×2 (09:18→21:00)
[2019-12-03] MEDS: REMDESIVIR 100 MG in SODIUM CHLORIDE 0.9% 250 ML IV SCH (14:11)
[2019-12-03] MEDS ORDERED: ALBUMIN HUMAN 25GM/100ML (25%) IV NR (14:30)
[2019-12-03] MEDS: NOREPINEPHRINE 8 MG in DEXT 5% WATER 242 ML IV PRN (17:22)
[2019-12-04] VITALS (88 sets, daily range): BP systolic 82–152; BP diastolic 41–84
[2019-12-04] MEDS: MIDAZOLAM HCL 100 MG in DEXT 5% WATER 80 ML IV PRN ×3 (00:20→21:31)
[2019-12-04] MEDS: FENTANYL CITRATE/PF 2,500 MCG in SODIUM CHLORIDE 0.9% 200 ML IV PRN ×2 (00:26→17:26)
[2019-12-04] MEDS: ALBUTEROL 6.7GM HFA INHALER ORI SCH ×6 (00:38→20:20)
[2019-12-04] MEDS: METOCLOPRAMIDE HCL 10MG/2ML VIAL IV SCH ×4 (05:19→23:23)
[2019-12-04] MEDS: MIDODRINE HCL 5MG TABLET PO SCH ×3 (05:19→21:00)
[2019-12-04] MEDS: PROPOFOL 10MG/ML 100ML 100 ML IV PRN ×5 (05:21→22:25)
[2019-12-04 06:03] LABS: CHLORIDE 101 mEq/L (98-107)
[2019-12-04 06:33] LABS: BASOPHILS % 0.3 % (0.0-2.0); EOSINOPHILS % 4.2 % (0.0-5.0); HEMATOCRIT. 28.7 % (36.0-48.0); HEMOGLOBIN. 10.1 g/dL (12.0-16.0); LYMPHOCYTES % 17.8 % (20.0-50.0); MEAN CORPUSCULAR HEMOGLOBIN 32.9 pg (28.0-32.0); MEAN CORPUSCULAR VOLUME 93.9 fL (81.0-99.0); MEAN PLATELET VOLUME 7.9 fl (7.4-10.4); NEUTROPHILS % 74.7 % (40.0-76.0); PLATELET 257 x1000/uL (130-400); RED BLOOD CELL COUNT 3.06 mill/uL (4.2-5.4); RED CELL DISTRIBUTION WIDTH 13.4 % (11.6-14.6)
[2019-12-04] MEDS ORDERED: POTASSIUM CHLORIDE INJ 40 MEQ in DEXT 5% WATER 500 ML IV SCH (08:00)
[2019-12-04 08:19] LABS: BG BASE EXCESS 7.9 mmol/L (-2.0-2.0); BG CARBOXYHEMOGLOBIN 0.2 % (0.5-1.5); BG DEOXYHEMOGLOBIN 13.6 % (0.0-5.0); BG HCO3 ACT 31.9 mmol/L (22.0-26.0); BG METHEMOGLOBIN 0.3 % (0.0-1.5); BG OXYGEN SATURATION 86.3 % (92.0-98.5); BG OXYHEMOGLOBIN 85.9 % (94.0-97.0); BG PCO2 41.9 mmHg (35.0-45.0); BG PH 7.499 (7.350-7.450); BG PO2 47.3 mmHg (75.0-100.0); BG SAMPLE SITE RIGHT RADIAL; BG TIDAL VOLUME(mL) 550 mL; BG TOTAL HEMOGLOBIN 10.2 g/dL (12.0-18.0); BG VENT MODE VENT - A/C; BG VENT RATE 26 set
[2019-12-04] MEDS: DOCUSATE SODIUM SUGAR FREE 100MG/10ML UDC NG SCH (09:00)
[2019-12-04] MEDS: ACETAMINOPHEN 650MG/20.3ML UDC PO PRN (09:09)
[2019-12-04] MEDS: ENOXAPARIN 80MG/0.8ML SYR SUBCUT SCH ×2 (09:10→20:57)
[2019-12-04] MEDS: ASCORBIC ACID 500 MG TABLET PO SCH ×2 (09:10→20:57)
[2019-12-04] MEDS: METHYLPREDNISOLONE SOD SUCC 40 MG/ML VIAL IV SCH (09:10)
[2019-12-04] MEDS: ZINC SULFATE 220 MG ( 50 ) CAPSULE PO SCH (09:10)
[2019-12-04] MEDS: PANTOPRAZOLE SODIUM 40 MG/VIAL IV SCH (09:12)
[2019-12-04] MEDS: NOREPINEPHRINE 8 MG in DEXT 5% WATER 242 ML IV PRN (11:01)
[2019-12-04] MEDS: REMDESIVIR 100 MG in SODIUM CHLORIDE 0.9% 250 ML IV SCH (14:27)
[2019-12-05] VITALS (91 sets, daily range): BP systolic 90–168; BP diastolic 49–84
[2019-12-05] MEDS: ALBUTEROL 6.7GM HFA INHALER ORI SCH ×6 (00:20→16:08)
[2019-12-05] MEDS: PROPOFOL 10MG/ML 100ML 100 ML IV PRN ×4 (03:35→21:58)
[2019-12-05 05:40] LABS: BASOPHILS % 0.3 % (0.0-2.0); EOSINOPHILS % 0.8 % (0.0-5.0); HEMATOCRIT. 30.1 % (36.0-48.0); HEMOGLOBIN. 10.4 g/dL (12.0-16.0); LYMPHOCYTES % 9.7 % (20.0-50.0); MEAN CORPUSCULAR HEMOGLOBIN 32.8 pg (28.0-32.0); MEAN CORPUSCULAR VOLUME 94.6 fL (81.0-99.0); MEAN PLATELET VOLUME 7.8 fl (7.4-10.4); NEUTROPHILS % 86.2 % (40.0-76.0); PLATELET 245 x1000/uL (130-400); RED BLOOD CELL COUNT 3.18 mill/uL (4.2-5.4); RED CELL DISTRIBUTION WIDTH 13.6 % (11.6-14.6)
[2019-12-05] MEDS: MIDODRINE HCL 5MG TABLET PO SCH ×2 (05:42→13:36)
[2019-12-05] MEDS: METOCLOPRAMIDE HCL 10MG/2ML VIAL IV SCH ×3 (05:42→17:40)
[2019-12-05 05:49] LABS: CHLORIDE 105 mEq/L (98-107)
[2019-12-05 07:48] LABS: BG BASE EXCESS 7.8 mmol/L (-2.0-2.0); BG DEOXYHEMOGLOBIN 8.9 % (0.0-5.0); BG HCO3 ACT 32.7 mmol/L (22.0-26.0); BG METHEMOGLOBIN 0.2 % (0.0-1.5); BG OXYGEN SATURATION 91.1 % (92.0-98.5); BG OXYHEMOGLOBIN 90.9 % (94.0-97.0); BG PCO2 47.3 mmHg (35.0-45.0); BG PH 7.457 (7.350-7.450); BG PO2 60.9 mmHg (75.0-100.0); BG SAMPLE SITE RIGHT RADIAL; BG TIDAL VOLUME(mL) 550 mL; BG VENT MODE VENT - A/C; BG VENT RATE 30 set
[2019-12-05] MEDS: FENTANYL CITRATE/PF 2,500 MCG in SODIUM CHLORIDE 0.9% 200 ML IV PRN ×2 (07:51→23:04)
[2019-12-05] MEDS: MIDAZOLAM HCL 100 MG in DEXT 5% WATER 80 ML IV PRN ×2 (07:52→19:32)
[2019-12-05] MEDS: DOCUSATE SODIUM SUGAR FREE 100MG/10ML UDC NG SCH (09:00)
[2019-12-05] MEDS: METHYLPREDNISOLONE SOD SUCC 40 MG/ML VIAL IV SCH (09:20)
[2019-12-05] MEDS: ASCORBIC ACID 500 MG TABLET PO SCH ×2 (09:20→20:26)
[2019-12-05] MEDS: ZINC SULFATE 220 MG ( 50 ) CAPSULE PO SCH (09:20)
[2019-12-05] MEDS: PANTOPRAZOLE SODIUM 40 MG/VIAL IV SCH (09:20)
[2019-12-05] MEDS: ACETAMINOPHEN 650MG/20.3ML UDC PO PRN (09:21)
[2019-12-05] MEDS: ENOXAPARIN 80MG/0.8ML SYR SUBCUT SCH ×2 (09:21→20:26)
[2019-12-05] MEDS: REMDESIVIR 100 MG in SODIUM CHLORIDE 0.9% 250 ML IV SCH (13:39)
[2019-12-05] MEDS ORDERED: POTASSIUM CHLORIDE 20MEQ/PACKET PO NR (17:00)
[2019-12-06] VITALS (91 sets, daily range): BP systolic 75–182; BP diastolic 31–95
[2019-12-06] MEDS: METOCLOPRAMIDE HCL 10MG/2ML VIAL IV SCH ×4 (00:34→18:00)
[2019-12-06] MEDS: ALBUTEROL 6.7GM HFA INHALER ORI SCH ×5 (04:35→21:00)
[2019-12-06] MEDS: PROPOFOL 10MG/ML 100ML 100 ML IV PRN ×4 (05:04→23:54)
[2019-12-06] MEDS: MIDAZOLAM HCL 100 MG in DEXT 5% WATER 80 ML IV PRN ×2 (05:42→17:46)
[2019-12-06 05:50] LABS: CHLORIDE 106 mEq/L (98-107)
[2019-12-06] MEDS: ENOXAPARIN 80MG/0.8ML SYR SUBCUT SCH ×2 (08:42→21:18)
[2019-12-06] MEDS: ASCORBIC ACID 500 MG TABLET PO SCH ×2 (08:42→21:17)
[2019-12-06] MEDS: ZINC SULFATE 220 MG ( 50 ) CAPSULE PO SCH (08:42)
[2019-12-06] MEDS: PANTOPRAZOLE SODIUM 40 MG/VIAL IV SCH (08:42)
[2019-12-06] MEDS: METHYLPREDNISOLONE SOD SUCC 40 MG/ML VIAL IV SCH (08:43)
[2019-12-06] MEDS: DOCUSATE SODIUM SUGAR FREE 100MG/10ML UDC NG SCH (08:43)
[2019-12-06 09:36] LABS: BG BASE EXCESS 4.4 mmol/L (-2.0-2.0); BG CARBOXYHEMOGLOBIN 0.3 % (0.5-1.5); BG DEOXYHEMOGLOBIN 16.7 % (0.0-5.0); BG FRACTION INSPIRED OXYGEN 90; BG HCO3 ACT 29.4 mmol/L (22.0-26.0); BG METHEMOGLOBIN 0.1 % (0.0-1.5); BG OXYGEN SATURATION 83.2 % (92.0-98.5); BG OXYHEMOGLOBIN 82.9 % (94.0-97.0); BG PCO2 45.8 mmHg (35.0-45.0); BG PH 7.426 (7.350-7.450); BG PO2 46.4 mmHg (75.0-100.0); BG SAMPLE SITE RIGHT RADIAL; BG TIDAL VOLUME(mL) 550 mL; BG TOTAL HEMOGLOBIN 11.9 g/dL (12.0-18.0); BG VENT MODE VENT- PRVC; BG VENT RATE 30 set
[2019-12-06 10:29] LABS: BASOPHILS % 0.2 % (0.0-2.0); EOSINOPHILS % 2.8 % (0.0-5.0); HEMATOCRIT. 36.4 % (36.0-48.0); HEMOGLOBIN. 12.4 g/dL (12.0-16.0); LYMPHOCYTES % 11.4 % (20.0-50.0); MEAN CORPUSCULAR HEMOGLOBIN 32.3 pg (28.0-32.0); MEAN CORPUSCULAR VOLUME 94.6 fL (81.0-99.0); MONOCYTES % 3.9 % (2.0-8.0); NEUTROPHILS % 81.7 % (40.0-76.0); PLATELET 281 x1000/uL (130-400); RED BLOOD CELL COUNT 3.85 mill/uL (4.2-5.4); RED CELL DISTRIBUTION WIDTH 13.9 % (11.6-14.6)
[2019-12-06] MEDS: NOREPINEPHRINE 8 MG in DEXT 5% WATER 242 ML IV PRN (11:48)
[2019-12-06] MEDS: MIDODRINE HCL 5MG TABLET PO SCH ×2 (13:54→21:18)
[2019-12-06] MEDS: REMDESIVIR 100 MG in SODIUM CHLORIDE 0.9% 250 ML IV SCH (13:55)
[2019-12-06] MEDS: FENTANYL CITRATE/PF 2,500 MCG in SODIUM CHLORIDE 0.9% 200 ML IV PRN (19:17)
[2019-12-07] VITALS (81 sets, daily range): BP systolic 67–127; BP diastolic 33–76
[2019-12-07] MEDS: METOCLOPRAMIDE HCL 10MG/2ML VIAL IV SCH ×4 (00:09→18:54)
[2019-12-07] MEDS: MIDAZOLAM HCL 100 MG in DEXT 5% WATER 80 ML IV PRN (03:54)
[2019-12-07] MEDS: ALBUTEROL 6.7GM HFA INHALER ORI SCH ×6 (04:50→20:05)
[2019-12-07] MEDS: PROPOFOL 10MG/ML 100ML 100 ML IV PRN ×2 (05:46→10:53)
[2019-12-07 05:49] LABS: BASOPHILS % 0.4 % (0.0-2.0); EOSINOPHILS % 5.7 % (0.0-5.0); HEMATOCRIT. 32.4 % (36.0-48.0); LYMPHOCYTES % 14.8 % (20.0-50.0); MEAN CORPUSCULAR HEMOGLOBIN 32.4 pg (28.0-32.0); MEAN CORPUSCULAR VOLUME 95.6 fL (81.0-99.0); MEAN PLATELET VOLUME 8.1 fl (7.4-10.4); MONOCYTES % 4.6 % (2.0-8.0); NEUTROPHILS % 74.5 % (40.0-76.0); PLATELET 284 x1000/uL (130-400); RED BLOOD CELL COUNT 3.38 mill/uL (4.2-5.4); RED CELL DISTRIBUTION WIDTH 13.9 % (11.6-14.6)
[2019-12-07 05:55] LABS: CHLORIDE 107 mEq/L (98-107)
[2019-12-07] MEDS: MIDODRINE HCL 5MG TABLET PO SCH ×3 (06:27→22:00)
[2019-12-07 08:23] LABS: BG CARBOXYHEMOGLOBIN 0.3 % (0.5-1.5); BG DEOXYHEMOGLOBIN 16.5 % (0.0-5.0); BG FRACTION INSPIRED OXYGEN 100; BG HCO3 ACT 33.3 mmol/L (22.0-26.0); BG METHEMOGLOBIN 0.1 % (0.0-1.5); BG OXYGEN SATURATION 83.4 % (92.0-98.5); BG OXYHEMOGLOBIN 83.1 % (94.0-97.0); BG PCO2 56.3 mmHg (35.0-45.0); BG PO2 46.6 mmHg (75.0-100.0); BG SAMPLE SITE RIGHT RADIAL; BG TIDAL VOLUME(mL) 550 mL; BG TOTAL HEMOGLOBIN 11.4 g/dL (12.0-18.0); BG VENT MODE VENT- PRVC; BG VENT RATE 30 set
[2019-12-07] MEDS: ZINC SULFATE 220 MG ( 50 ) CAPSULE PO SCH (08:24)
[2019-12-07] MEDS: METHYLPREDNISOLONE SOD SUCC 40 MG/ML VIAL IV SCH (08:24)
[2019-12-07] MEDS: PANTOPRAZOLE SODIUM 40 MG/VIAL IV SCH (08:24)
[2019-12-07] MEDS: ASCORBIC ACID 500 MG TABLET PO SCH ×2 (08:24→21:00)
[2019-12-07] MEDS: DOCUSATE SODIUM SUGAR FREE 100MG/10ML UDC NG SCH (08:24)
[2019-12-07] MEDS: ENOXAPARIN 80MG/0.8ML SYR SUBCUT SCH ×2 (08:25→21:00)
[2019-12-07] MEDS: FENTANYL CITRATE/PF 2,500 MCG in SODIUM CHLORIDE 0.9% 200 ML IV PRN (11:20)
[2019-12-07] MEDS ORDERED: PROPOFOL 10MG/ML 100ML 100 ML IV PRN (15:30)
[2019-12-08] VITALS (84 sets, daily range): BP systolic 83–148; BP diastolic 46–79
[2019-12-08] MEDS: ALBUTEROL 6.7GM HFA INHALER ORI SCH ×6 (00:40→21:05)
[2019-12-08] MEDS: PROPOFOL 10MG/ML 100ML 100 ML IV PRN ×5 (01:34→20:44)
[2019-12-08] MEDS: METOCLOPRAMIDE HCL 10MG/2ML VIAL IV SCH ×4 (05:46→18:04)
[2019-12-08] MEDS: MIDODRINE HCL 5MG TABLET PO SCH ×3 (05:46→21:11)
[2019-12-08 05:49] LABS: BASOPHILS % 0.5 % (0.0-2.0); EOSINOPHILS % 4.8 % (0.0-5.0); HEMATOCRIT. 32.2 % (36.0-48.0); HEMOGLOBIN. 10.9 g/dL (12.0-16.0); LYMPHOCYTES % 14.7 % (20.0-50.0); MEAN CORPUSCULAR HEMOGLOBIN 32.4 pg (28.0-32.0); MEAN CORPUSCULAR VOLUME 95.9 fL (81.0-99.0); MEAN PLATELET VOLUME 7.9 fl (7.4-10.4); MONOCYTES % 3.5 % (2.0-8.0); NEUTROPHILS % 76.5 % (40.0-76.0); PLATELET 327 x1000/uL (130-400); RED BLOOD CELL COUNT 3.36 mill/uL (4.2-5.4); RED CELL DISTRIBUTION WIDTH 14.1 % (11.6-14.6)
[2019-12-08 05:56] LABS: CHLORIDE 107 mEq/L (98-107)
[2019-12-08] MEDS: ASCORBIC ACID 500 MG TABLET PO SCH ×2 (08:21→21:11)
[2019-12-08] MEDS: DOCUSATE SODIUM SUGAR FREE 100MG/10ML UDC NG SCH (08:21)
[2019-12-08] MEDS: PANTOPRAZOLE SODIUM 40 MG/VIAL IV SCH (08:21)
[2019-12-08] MEDS: ENOXAPARIN 80MG/0.8ML SYR SUBCUT SCH (08:21)
[2019-12-08] MEDS: METHYLPREDNISOLONE SOD SUCC 40 MG/ML VIAL IV SCH (08:21)
[2019-12-08] MEDS: ZINC SULFATE 220 MG ( 50 ) CAPSULE PO SCH (08:22)
[2019-12-08 09:37] LABS: BG BASE EXCESS 5.2 mmol/L (-2.0-2.0); BG CARBOXYHEMOGLOBIN 0.3 % (0.5-1.5); BG DEOXYHEMOGLOBIN 3.1 % (0.0-5.0); BG FRACTION INSPIRED OXYGEN 100; BG HCO3 ACT 30.6 mmol/L (22.0-26.0); BG METHEMOGLOBIN 0.2 % (0.0-1.5); BG OXYGEN SATURATION 96.9 % (92.0-98.5); BG OXYHEMOGLOBIN 96.4 % (94.0-97.0); BG PCO2 48.7 mmHg (35.0-45.0); BG PH 7.416 (7.350-7.450); BG PO2 94.1 mmHg (75.0-100.0); BG SAMPLE SITE RIGHT RADIAL; BG TIDAL VOLUME(mL) 550 mL; BG TOTAL HEMOGLOBIN 10.9 g/dL (12.0-18.0); BG VENT MODE VENT- PRVC; BG VENT RATE 30 set
[2019-12-08] MEDS ORDERED: LACTULOSE 20G/30ML UDC PO SCH (10:45)
[2019-12-08] MEDS: MIDAZOLAM HCL 100 MG in DEXT 5% WATER 80 ML IV PRN (14:09)
[2019-12-08] MEDS: FENTANYL CITRATE/PF 2,500 MCG in SODIUM CHLORIDE 0.9% 200 ML IV PRN (16:47)
[2019-12-09] VITALS (92 sets, daily range): BP systolic 80–140; BP diastolic 32–101
[2019-12-09] MEDS: MIDAZOLAM HCL 100 MG in DEXT 5% WATER 80 ML IV PRN ×2 (00:09→14:31)
[2019-12-09] MEDS: NOREPINEPHRINE 8 MG in DEXT 5% WATER 242 ML IV PRN (00:10)
[2019-12-09] MEDS: ALBUTEROL 6.7GM HFA INHALER ORI SCH ×6 (00:45→20:47)
[2019-12-09] MEDS: METOCLOPRAMIDE HCL 10MG/2ML VIAL IV SCH ×4 (01:25→18:15)
[2019-12-09] MEDS: PROPOFOL 10MG/ML 100ML 100 ML IV PRN ×4 (01:27→21:11)
[2019-12-09 05:13] LABS: BASOPHILS % 1.1 % (0.0-2.0); HEMATOCRIT. 29.1 % (36.0-48.0); HEMOGLOBIN. 10.2 g/dL (12.0-16.0); LYMPHOCYTES % 11.6 % (20.0-50.0); MEAN CORPUSCULAR HEMOGLOBIN 33.8 pg (28.0-32.0); MEAN CORPUSCULAR VOLUME 96.4 fL (81.0-99.0); MEAN PLATELET VOLUME 8.1 fl (7.4-10.4); MONOCYTES % 5.3 % (2.0-8.0); PLATELET 306 x1000/uL (130-400); RED BLOOD CELL COUNT 3.01 mill/uL (4.2-5.4); RED CELL DISTRIBUTION WIDTH 14.3 % (11.6-14.6)
[2019-12-09 05:25] LABS: CHLORIDE 106 mEq/L (98-107)
[2019-12-09] MEDS: FENTANYL CITRATE/PF 2,500 MCG in SODIUM CHLORIDE 0.9% 200 ML IV PRN ×2 (05:41→18:14)
[2019-12-09] MEDS: MIDODRINE HCL 5MG TABLET PO SCH ×4 (06:00→20:37)
[2019-12-09 08:42] LABS: BG BASE EXCESS 3.8 mmol/L (-2.0-2.0); BG CARBOXYHEMOGLOBIN 0.3 % (0.5-1.5); BG DEOXYHEMOGLOBIN 5.3 % (0.0-5.0); BG FRACTION INSPIRED OXYGEN 100; BG HCO3 ACT 28.7 mmol/L (22.0-26.0); BG METHEMOGLOBIN 0.2 % (0.0-1.5); BG OXYGEN SATURATION 94.7 % (92.0-98.5); BG OXYHEMOGLOBIN 94.2 % (94.0-97.0); BG PCO2 45.1 mmHg (35.0-45.0); BG PH 7.422 (7.350-7.450); BG PO2 75.3 mmHg (75.0-100.0); BG SAMPLE SITE RIGHT RADIAL; BG TIDAL VOLUME(mL) 550 mL; BG TOTAL HEMOGLOBIN 10.4 g/dL (12.0-18.0); BG VENT MODE VENT- PRVC; BG VENT RATE 30 set
[2019-12-09] MEDS: PANTOPRAZOLE SODIUM 40 MG/VIAL IV SCH (09:45)
[2019-12-09] MEDS: METHYLPREDNISOLONE SOD SUCC 40 MG/ML VIAL IV SCH (09:45)
[2019-12-09] MEDS: ASCORBIC ACID 500 MG TABLET PO SCH ×2 (09:58→20:37)
[2019-12-09] MEDS: ZINC SULFATE 220 MG ( 50 ) CAPSULE PO SCH (09:58)
[2019-12-09] MEDS ORDERED: LIDOCAINE HCL/EPINEPHRINE 1%-EPI 1:100,000 20 ML VIAL INFIL NR (10:30)
[2019-12-09] MEDS: DOCUSATE SODIUM SUGAR FREE 100MG/10ML UDC NG SCH (16:04)
[2019-12-10] VITALS (93 sets, daily range): BP systolic 71–120; BP diastolic 31–69
[2019-12-10] MEDS: METOCLOPRAMIDE HCL 10MG/2ML VIAL IV SCH ×4 (00:35→18:05)
[2019-12-10] MEDS: MIDAZOLAM HCL 100 MG in DEXT 5% WATER 80 ML IV PRN ×2 (00:57→22:27)
[2019-12-10] MEDS: PROPOFOL 10MG/ML 100ML 100 ML IV PRN ×5 (01:58→21:01)
[2019-12-10] MEDS: ALBUTEROL 6.7GM HFA INHALER ORI SCH ×5 (04:00→20:30)
[2019-12-10 05:02] LABS: BASOPHILS % 0.3 % (0.0-2.0); EOSINOPHILS % 3.7 % (0.0-5.0); HEMATOCRIT. 28.3 % (36.0-48.0); HEMOGLOBIN. 9.7 g/dL (12.0-16.0); LYMPHOCYTES % 12.7 % (20.0-50.0); MEAN CORPUSCULAR HEMOGLOBIN 32.9 pg (28.0-32.0); MEAN CORPUSCULAR VOLUME 95.8 fL (81.0-99.0); MEAN PLATELET VOLUME 7.5 fl (7.4-10.4); NEUTROPHILS % 76.3 % (40.0-76.0); PLATELET 360 x1000/uL (130-400); RED BLOOD CELL COUNT 2.95 mill/uL (4.2-5.4); RED CELL DISTRIBUTION WIDTH 14.4 % (11.6-14.6)
[2019-12-10 05:07] LABS: CHLORIDE 107 mEq/L (98-107)
[2019-12-10] MEDS: MIDODRINE HCL 5MG TABLET PO SCH ×3 (05:07→22:19)
[2019-12-10] MEDS: FENTANYL CITRATE/PF 2,500 MCG in SODIUM CHLORIDE 0.9% 200 ML IV PRN ×2 (07:41→22:29)
[2019-12-10 08:13] LABS: BG BASE EXCESS 2.3 mmol/L (-2.0-2.0); BG CARBOXYHEMOGLOBIN 0.1 % (0.5-1.5); BG DEOXYHEMOGLOBIN 7.4 % (0.0-5.0); BG HCO3 ACT 28.2 mmol/L (22.0-26.0); BG METHEMOGLOBIN 0.1 % (0.0-1.5); BG OXYGEN SATURATION 92.6 % (92.0-98.5); BG OXYHEMOGLOBIN 92.4 % (94.0-97.0); BG PCO2 50.2 mmHg (35.0-45.0); BG PH 7.367 (7.350-7.450); BG PO2 66.5 mmHg (75.0-100.0); BG SAMPLE SITE RIGHT RADIAL; BG TIDAL VOLUME(mL) 550 mL; BG TOTAL HEMOGLOBIN 10.3 g/dL (12.0-18.0); BG VENT MODE VENT - A/C; BG VENT RATE 30 set
[2019-12-10] MEDS: ASCORBIC ACID 500 MG TABLET PO SCH ×2 (08:13→22:20)
[2019-12-10] MEDS: PANTOPRAZOLE SODIUM 40 MG/VIAL IV SCH (08:13)
[2019-12-10] MEDS: ZINC SULFATE 220 MG ( 50 ) CAPSULE PO SCH (08:13)
[2019-12-10] MEDS: DOCUSATE SODIUM SUGAR FREE 100MG/10ML UDC NG SCH (08:14)
[2019-12-10] MEDS: ACETAMINOPHEN 650MG/20.3ML UDC PO PRN (18:57)
[2019-12-10] MEDS: SODIUM CHLORIDE 0.9% 500 ML IV NR (23:15)
[2019-12-11] VITALS (85 sets, daily range): BP systolic 69–154; BP diastolic 32–83
[2019-12-11] MEDS: ALBUTEROL 6.7GM HFA INHALER ORI SCH ×6 (00:10→19:50)
[2019-12-11] MEDS: METOCLOPRAMIDE HCL 10MG/2ML VIAL IV SCH ×4 (00:18→18:09)
[2019-12-11] MEDS: SODIUM CHLORIDE 0.9% 500 ML IV NR (01:15)
[2019-12-11] MEDS: PROPOFOL 10MG/ML 100ML 100 ML IV PRN ×2 (02:06→06:20)
[2019-12-11 06:02] LABS: HEMATOCRIT. 28.9 % (36.0-48.0); HEMOGLOBIN. 9.7 g/dL (12.0-16.0); MEAN CORPUSCULAR HEMOGLOBIN 32.5 pg (28.0-32.0); MEAN CORPUSCULAR VOLUME 96.9 fL (81.0-99.0); MEAN PLATELET VOLUME 6.6 fl (7.4-10.4); PLATELET 342 x1000/uL (130-400); RED BLOOD CELL COUNT 2.98 mill/uL (4.2-5.4); RED CELL DISTRIBUTION WIDTH 14.7 % (11.6-14.6)
[2019-12-11 06:08] LABS: CHLORIDE 105 mEq/L (98-107)
[2019-12-11] MEDS: NOREPINEPHRINE 8 MG in DEXT 5% WATER 242 ML IV PRN (06:21)
[2019-12-11] MEDS: MIDODRINE HCL 5MG TABLET PO SCH ×3 (08:00→20:55)
[2019-12-11 08:25] LABS: BG BASE EXCESS 1.4 mmol/L (-2.0-2.0); BG CARBOXYHEMOGLOBIN 0.5 % (0.5-1.5); BG DEOXYHEMOGLOBIN 5.9 % (0.0-5.0); BG FRACTION INSPIRED OXYGEN 100; BG HCO3 ACT 27.3 mmol/L (22.0-26.0); BG METHEMOGLOBIN 0.4 % (0.0-1.5); BG OXYHEMOGLOBIN 93.2 % (94.0-97.0); BG PCO2 48.9 mmHg (35.0-45.0); BG PH 7.364 (7.350-7.450); BG PO2 75.5 mmHg (75.0-100.0); BG SAMPLE SITE RIGHT RADIAL; BG TIDAL VOLUME(mL) 550 mL; BG TOTAL HEMOGLOBIN 10.5 g/dL (12.0-18.0); BG VENT MODE PRVC; BG VENT RATE 30 set
[2019-12-11] MEDS: PANTOPRAZOLE SODIUM 40 MG/VIAL IV SCH (09:31)
[2019-12-11] MEDS: ZINC SULFATE 220 MG ( 50 ) CAPSULE PO SCH (09:31)
[2019-12-11] MEDS: ASCORBIC ACID 500 MG TABLET PO SCH ×2 (09:32→21:02)
[2019-12-11] MEDS: ENOXAPARIN 80MG/0.8ML SYR SUBCUT SCH ×2 (09:32→21:02)
[2019-12-11] MEDS: DOCUSATE SODIUM SUGAR FREE 100MG/10ML UDC NG SCH (09:33)
[2019-12-11 09:45] LABS: PLATELET ESTIMATE NORMAL
[2019-12-11] MEDS: FENTANYL CITRATE/PF 2,500 MCG in SODIUM CHLORIDE 0.9% 200 ML IV PRN (12:41)
[2019-12-11] MEDS: FLUDROCORTISONE ACETATE 0.1MG TABLET PO SCH (12:51)
[2019-12-11] MEDS: MEROPENEM 500 MG in SODIUM CHLORIDE 0.9% 50 ML IV SCH (16:02)
[2019-12-11] MEDS: MIDAZOLAM HCL 100 MG in DEXT 5% WATER 80 ML IV PRN (21:32)
[2019-12-12] VITALS (89 sets, daily range): BP systolic 58–160; BP diastolic 32–136
[2019-12-12] MEDS: MEROPENEM 500 MG in SODIUM CHLORIDE 0.9% 50 ML IV SCH ×3 (00:01→16:38)
[2019-12-12] MEDS: NOREPINEPHRINE 8 MG in DEXT 5% WATER 242 ML IV PRN (00:02)
[2019-12-12] MEDS: METOCLOPRAMIDE HCL 10MG/2ML VIAL IV SCH ×4 (00:02→18:32)
[2019-12-12] MEDS: ALBUTEROL 6.7GM HFA INHALER ORI SCH ×2 (00:30→04:20)
[2019-12-12 05:29] LABS: BASOPHILS % 0.4 % (0.0-2.0); EOSINOPHILS % 6.6 % (0.0-5.0); HEMATOCRIT. 28.3 % (36.0-48.0); HEMOGLOBIN. 9.6 g/dL (12.0-16.0); LYMPHOCYTES % 8.7 % (20.0-50.0); MEAN CORPUSCULAR HEMOGLOBIN 32.6 pg (28.0-32.0); MEAN CORPUSCULAR VOLUME 96.3 fL (81.0-99.0); MEAN PLATELET VOLUME 7.1 fl (7.4-10.4); MONOCYTES % 5.3 % (2.0-8.0); PLATELET 354 x1000/uL (130-400); RED BLOOD CELL COUNT 2.94 mill/uL (4.2-5.4); RED CELL DISTRIBUTION WIDTH 14.3 % (11.6-14.6)
[2019-12-12 05:31] LABS: CHLORIDE 104 mEq/L (98-107)
[2019-12-12] MEDS: MIDODRINE HCL 5MG TABLET PO SCH ×3 (05:35→21:42)
[2019-12-12 08:54] LABS: BG BASE EXCESS 1.4 mmol/L (-2.0-2.0); BG CARBOXYHEMOGLOBIN 1.4 % (0.5-1.5); BG DEOXYHEMOGLOBIN 6.8 % (0.0-5.0); BG FRACTION INSPIRED OXYGEN 100; BG HCO3 ACT 27.6 mmol/L (22.0-26.0); BG OXYGEN SATURATION 93.1 % (92.0-98.5); BG OXYHEMOGLOBIN 91.8 % (94.0-97.0); BG PCO2 51.8 mmHg (35.0-45.0); BG PH 7.345 (7.350-7.450); BG PO2 69.5 mmHg (75.0-100.0); BG SAMPLE SITE RIGHT RADIAL; BG TIDAL VOLUME(mL) 550 mL; BG TOTAL HEMOGLOBIN 9.9 g/dL (12.0-18.0); BG VENT MODE PRVC; BG VENT RATE 30 set
[2019-12-12] MEDS: DOCUSATE SODIUM SUGAR FREE 100MG/10ML UDC NG SCH (09:12)
[2019-12-12] MEDS: FLUDROCORTISONE ACETATE 0.1MG TABLET PO SCH (09:12)
[2019-12-12] MEDS: ZINC SULFATE 220 MG ( 50 ) CAPSULE PO SCH (09:12)
[2019-12-12] MEDS: ASCORBIC ACID 500 MG TABLET PO SCH ×2 (09:12→21:41)
[2019-12-12] MEDS: ENOXAPARIN 80MG/0.8ML SYR SUBCUT SCH (09:12)
[2019-12-12] MEDS: PANTOPRAZOLE SODIUM 40 MG/VIAL IV SCH (09:12)
[2019-12-12] MEDS ORDERED: DIGOXIN 500MCG/2ML AMP IV NR (13:30)
[2019-12-12] MEDS ORDERED: SODIUM CHLORIDE 0.9% 500 ML IV ONE (13:30)
[2019-12-12] MEDS ORDERED: DILTIAZEM HCL 125 MG in DEXT 5% WATER 100 ML IV PRN (13:45)
[2019-12-12] MEDS ORDERED: DILTIAZEM HCL 5MG/ML 5ML VIAL IV NR (13:45)
[2019-12-12] MEDS: ACETAMINOPHEN 650MG/20.3ML UDC PO PRN ×2 (14:27→18:32)
[2019-12-12] MEDS: FENTANYL CITRATE/PF 2,500 MCG in SODIUM CHLORIDE 0.9% 200 ML IV PRN (15:20)
[2019-12-12] MEDS: PHENYLEPHRINE 20 MG in DEXT 5% WATER 248 ML IV PRN (16:39)
[2019-12-12] MEDS: ENOXAPARIN 100MG/ML SYR SUBCUT SCH (21:42)
[2019-12-12] MEDS: MIDAZOLAM HCL 100 MG in DEXT 5% WATER 80 ML IV PRN (23:10)
[2019-12-13] VITALS (98 sets, daily range): BP systolic 60–134; BP diastolic 20–85
[2019-12-13] MEDS: MEROPENEM 500 MG in SODIUM CHLORIDE 0.9% 50 ML IV SCH ×4 (00:18→23:32)
[2019-12-13] MEDS: METOCLOPRAMIDE HCL 10MG/2ML VIAL IV SCH ×5 (00:18→23:32)
[2019-12-13 04:11] LABS: BG BASE EXCESS -11.4 mmol/L (-2.0-2.0); BG CARBOXYHEMOGLOBIN 1.9 % (0.5-1.5); BG DEOXYHEMOGLOBIN 36.3 % (0.0-5.0); BG FRACTION INSPIRED OXYGEN 100; BG HCO3 ACT 16.6 mmol/L (22.0-26.0); BG METHEMOGLOBIN 0.2 % (0.0-1.5); BG OXYGEN SATURATION 62.9 % (92.0-98.5); BG OXYHEMOGLOBIN 61.6 % (94.0-97.0); BG PCO2 45.2 mmHg (35.0-45.0); BG PH 7.183 (7.350-7.450); BG PO2 37.7 mmHg (75.0-100.0); BG SAMPLE SITE RIGHT RADIAL; BG TIDAL VOLUME(mL) 30 mL; BG TOTAL HEMOGLOBIN 13.8 g/dL (12.0-18.0); BG VENT MODE VENT - A/C; BG VENT RATE 550 set
[2019-12-13] MEDS ORDERED: SODIUM BICARBONATE 8.4% 1 MEQ/ML 50ML SYR IV SCH (04:45)
[2019-12-13] MEDS: PHENYLEPHRINE 20 MG in DEXT 5% WATER 248 ML IV PRN (04:59)
[2019-12-13] MEDS: MIDODRINE HCL 5MG TABLET PO SCH ×3 (05:00→22:03)
[2019-12-13] MEDS: FENTANYL CITRATE/PF 2,500 MCG in SODIUM CHLORIDE 0.9% 200 ML IV PRN ×2 (05:24→18:17)
[2019-12-13 05:44] LABS: BASOPHILS % 0.5 % (0.0-2.0); EOSINOPHILS % 4.3 % (0.0-5.0); HEMATOCRIT. 29.9 % (36.0-48.0); HEMOGLOBIN. 9.8 g/dL (12.0-16.0); LYMPHOCYTES % 12.7 % (20.0-50.0); MEAN CORPUSCULAR HEMOGLOBIN 32.5 pg (28.0-32.0); MEAN CORPUSCULAR VOLUME 99.6 fL (81.0-99.0); MEAN PLATELET VOLUME 7.2 fl (7.4-10.4); MONOCYTES % 4.8 % (2.0-8.0); NEUTROPHILS % 77.7 % (40.0-76.0); PLATELET 449 x1000/uL (130-400); RED CELL DISTRIBUTION WIDTH 15.1 % (11.6-14.6)
[2019-12-13 06:05] LABS: CHLORIDE 102 mEq/L (98-107)
[2019-12-13] MEDS: PHENYLEPHRINE 80 MG in DEXT 5% WATER 492 ML IV PRN ×3 (06:55→23:28)
[2019-12-13] MEDS: NOREPINEPHRINE 8 MG in DEXT 5% WATER 242 ML IV PRN (07:38)
[2019-12-13] MEDS: MIDAZOLAM HCL 100 MG in DEXT 5% WATER 80 ML IV PRN ×2 (08:32→19:41)
[2019-12-13] MEDS ORDERED: PROPOFOL 10MG/ML 100ML 100 ML IV PRN (08:45)
[2019-12-13] MEDS: ALBUTEROL 6.7GM HFA INHALER ORI SCH ×6 (08:50→21:03)
[2019-12-13] MEDS: FLUDROCORTISONE ACETATE 0.1MG TABLET PO SCH (09:01)
[2019-12-13] MEDS: DOCUSATE SODIUM SUGAR FREE 100MG/10ML UDC NG SCH (09:01)
[2019-12-13] MEDS: ZINC SULFATE 220 MG ( 50 ) CAPSULE PO SCH (09:01)
[2019-12-13] MEDS: ASCORBIC ACID 500 MG TABLET PO SCH ×2 (09:02→21:50)
[2019-12-13] MEDS: PANTOPRAZOLE SODIUM 40 MG/VIAL IV SCH (09:02)
[2019-12-13] MEDS: ENOXAPARIN 100MG/ML SYR SUBCUT SCH ×2 (09:02→22:03)
[2019-12-13] MEDS: ACETAMINOPHEN 650MG/20.3ML UDC PO PRN (09:46)
[2019-12-13 10:37] LABS: BG BASE EXCESS -2.3 mmol/L (-2.0-2.0); BG CARBOXYHEMOGLOBIN 1.4 % (0.5-1.5); BG DEOXYHEMOGLOBIN 10.4 % (0.0-5.0); BG FRACTION INSPIRED OXYGEN 100; BG HCO3 ACT 24.7 mmol/L (22.0-26.0); BG METHEMOGLOBIN 0.3 % (0.0-1.5); BG OXYGEN SATURATION 89.4 % (92.0-98.5); BG OXYHEMOGLOBIN 87.9 % (94.0-97.0); BG PCO2 53.6 mmHg (35.0-45.0); BG PH 7.282 (7.350-7.450); BG PO2 63.3 mmHg (75.0-100.0); BG SAMPLE SITE RIGHT RADIAL; BG TIDAL VOLUME(mL) 550 mL; BG TOTAL HEMOGLOBIN 9.8 g/dL (12.0-18.0); BG VENT MODE VENT- PRVC; BG VENT RATE 30 set
[2019-12-13] MEDS ORDERED: SODIUM CHLORIDE 0.9% 500 ML IV ONE (10:45)
[2019-12-14] VITALS (108 sets, daily range): BP systolic 28–160; BP diastolic 18–106
[2019-12-14] MEDS: ALBUTEROL 6.7GM HFA INHALER ORI SCH ×6 (00:21→20:40)
[2019-12-14 05:20] LABS: HEMATOCRIT. 29.9 % (36.0-48.0); HEMOGLOBIN. 9.9 g/dL (12.0-16.0); MEAN CORPUSCULAR HEMOGLOBIN 32.6 pg (28.0-32.0); MEAN CORPUSCULAR VOLUME 98.3 fL (81.0-99.0); MEAN PLATELET VOLUME 7.4 fl (7.4-10.4); PLATELET 458 x1000/uL (130-400); RED BLOOD CELL COUNT 3.04 mill/uL (4.2-5.4); RED CELL DISTRIBUTION WIDTH 15.2 % (11.6-14.6)
[2019-12-14 05:23] LABS: CHLORIDE 97 mEq/L (98-107)
[2019-12-14] MEDS: METOCLOPRAMIDE HCL 10MG/2ML VIAL IV SCH ×3 (05:28→17:02)
[2019-12-14] MEDS: MIDODRINE HCL 5MG TABLET PO SCH ×3 (05:28→21:53)
[2019-12-14] MEDS: ACETAMINOPHEN 650MG/20.3ML UDC PO PRN (05:29)
[2019-12-14] MEDS: NOREPINEPHRINE 8 MG in DEXT 5% WATER 242 ML IV PRN (07:26)
[2019-12-14] MEDS: MIDAZOLAM HCL 100 MG in DEXT 5% WATER 80 ML IV PRN ×2 (07:27→19:00)
[2019-12-14] MEDS: PHENYLEPHRINE 80 MG in DEXT 5% WATER 492 ML IV PRN ×2 (07:27→19:51)
[2019-12-14] MEDS: MEROPENEM 500 MG in SODIUM CHLORIDE 0.9% 50 ML IV SCH ×2 (07:27→17:02)
[2019-12-14] MEDS: FENTANYL CITRATE/PF 2,500 MCG in SODIUM CHLORIDE 0.9% 200 ML IV PRN ×2 (07:28→21:42)
[2019-12-14 08:11] LABS: BG BASE EXCESS -5.6 mmol/L (-2.0-2.0); BG CARBOXYHEMOGLOBIN 1.8 % (0.5-1.5); BG DEOXYHEMOGLOBIN 23.2 % (0.0-5.0); BG FRACTION INSPIRED OXYGEN 100; BG HCO3 ACT 23.5 mmol/L (22.0-26.0); BG OXYGEN SATURATION 76.4 % (92.0-98.5); BG PCO2 67.7 mmHg (35.0-45.0); BG PH 7.159 (7.350-7.450); BG PO2 50.6 mmHg (75.0-100.0); BG SAMPLE SITE RIGHT RADIAL; BG TIDAL VOLUME(mL) 550 mL; BG TOTAL HEMOGLOBIN 9.9 g/dL (12.0-18.0); BG VENT MODE VENT- PRVC; BG VENT RATE 30 set
[2019-12-14 09:02] LABS: NUCLEATED RED BLOOD CELLS 6 /100 WBC; PLATELET ESTIMATE SLIGHTLY INCREASED
[2019-12-14] MEDS: DOCUSATE SODIUM SUGAR FREE 100MG/10ML UDC NG SCH (09:22)
[2019-12-14] MEDS: ZINC SULFATE 220 MG ( 50 ) CAPSULE PO SCH (09:23)
[2019-12-14] MEDS: PANTOPRAZOLE SODIUM 40 MG/VIAL IV SCH (09:23)
[2019-12-14] MEDS: MULTIVITAMINS,THER W-MINERALS TABLET NG SCH (09:23)
[2019-12-14] MEDS: FLUDROCORTISONE ACETATE 0.1MG TABLET PO SCH (09:23)
[2019-12-14] MEDS: ENOXAPARIN 100MG/ML SYR SUBCUT SCH ×2 (09:24→21:52)
[2019-12-15] VITALS (88 sets, daily range): BP systolic 78–233; BP diastolic 33–118
[2019-12-15] MEDS: METOCLOPRAMIDE HCL 10MG/2ML VIAL IV SCH ×5 (00:04→23:52)
[2019-12-15] MEDS: MEROPENEM 500 MG in SODIUM CHLORIDE 0.9% 50 ML IV SCH ×4 (00:04→23:53)
[2019-12-15] MEDS: ALBUTEROL 6.7GM HFA INHALER ORI SCH ×7 (00:31→21:10)
[2019-12-15] MEDS: PHENYLEPHRINE 80 MG in DEXT 5% WATER 492 ML IV PRN ×3 (00:41→18:29)
[2019-12-15 05:43] LABS: HEMATOCRIT. 29.9 % (36.0-48.0); HEMOGLOBIN. 9.7 g/dL (12.0-16.0); MEAN CORPUSCULAR HEMOGLOBIN 32.7 pg (28.0-32.0); MEAN CORPUSCULAR VOLUME 100.3 fL (81.0-99.0); MEAN PLATELET VOLUME 7.5 fl (7.4-10.4); PLATELET 432 x1000/uL (130-400); RED BLOOD CELL COUNT 2.98 mill/uL (4.2-5.4); RED CELL DISTRIBUTION WIDTH 15.4 % (11.6-14.6)
[2019-12-15] MEDS: MIDODRINE HCL 5MG TABLET PO SCH ×3 (06:14→21:30)
[2019-12-15 07:16] LABS: NUCLEATED RED BLOOD CELLS 12 /100 WBC
[2019-12-15 07:18] LABS: PLATELET ESTIMATE NORMAL
[2019-12-15] MEDS: MIDAZOLAM HCL 100 MG in DEXT 5% WATER 80 ML IV PRN ×2 (07:53→18:29)
[2019-12-15 08:56] LABS: BG BASE EXCESS -1.3 mmol/L (-2.0-2.0); BG CARBOXYHEMOGLOBIN 1.6 % (0.5-1.5); BG DEOXYHEMOGLOBIN 23.4 % (0.0-5.0); BG FRACTION INSPIRED OXYGEN 100; BG HCO3 ACT 26.9 mmol/L (22.0-26.0); BG OXYGEN SATURATION 76.2 % (92.0-98.5); BG PH 7.235 (7.350-7.450); BG PO2 48.2 mmHg (75.0-100.0); BG SAMPLE SITE RIGHT RADIAL; BG TIDAL VOLUME(mL) 550 mL; BG TOTAL HEMOGLOBIN 10.1 g/dL (12.0-18.0); BG VENT MODE VENT- PRVC; BG VENT RATE 30 set
[2019-12-15] MEDS: DOCUSATE SODIUM SUGAR FREE 100MG/10ML UDC NG SCH (09:34)
[2019-12-15] MEDS: MULTIVITAMINS,THER W-MINERALS TABLET NG SCH (09:35)
[2019-12-15] MEDS: ENOXAPARIN 100MG/ML SYR SUBCUT SCH ×2 (09:35→21:29)
[2019-12-15] MEDS: FLUDROCORTISONE ACETATE 0.1MG TABLET PO SCH (09:35)
[2019-12-15] MEDS: PANTOPRAZOLE SODIUM 40 MG/VIAL IV SCH (09:36)
[2019-12-15] MEDS: SODIUM CHLORIDE 0.9% 1,000 ML IV SCH ×2 (10:51→23:53)
[2019-12-15] MEDS: FENTANYL CITRATE/PF 2,500 MCG in SODIUM CHLORIDE 0.9% 200 ML IV PRN (10:56)
[2019-12-15] MEDS: NOREPINEPHRINE 16 MG in DEXT 5% WATER 234 ML IV PRN (18:28)
[2019-12-16] VITALS (71 sets, daily range): BP systolic 50–142; BP diastolic 14–92
[2019-12-16] MEDS: ALBUTEROL 6.7GM HFA INHALER ORI SCH ×6 (00:10→23:45)
[2019-12-16] MEDS: FENTANYL CITRATE/PF 2,500 MCG in SODIUM CHLORIDE 0.9% 200 ML IV PRN (00:37)
[2019-12-16] MEDS: MIDAZOLAM HCL 100 MG in DEXT 5% WATER 80 ML IV PRN (02:05)
[2019-12-16] MEDS: PHENYLEPHRINE 80 MG in DEXT 5% WATER 492 ML IV PRN (04:00)
[2019-12-16] MEDS: MIDODRINE HCL 5MG TABLET PO SCH ×3 (05:30→21:11)
[2019-12-16] MEDS: METOCLOPRAMIDE HCL 10MG/2ML VIAL IV SCH ×4 (05:30→23:46)
[2019-12-16] MEDS: DOCUSATE SODIUM SUGAR FREE 100MG/10ML UDC NG SCH (08:53)
[2019-12-16] MEDS: MULTIVITAMINS,THER W-MINERALS TABLET NG SCH (08:54)
[2019-12-16] MEDS: PANTOPRAZOLE SODIUM 40 MG/VIAL IV SCH (08:54)
[2019-12-16] MEDS: ENOXAPARIN 100MG/ML SYR SUBCUT SCH ×2 (08:54→21:10)
[2019-12-16] MEDS: FLUDROCORTISONE ACETATE 0.1MG TABLET PO SCH (08:54)
[2019-12-16] MEDS: MEROPENEM 500 MG in SODIUM CHLORIDE 0.9% 50 ML IV SCH ×2 (08:54→16:00)
[2019-12-16] MEDS: METOPROLOL TARTRATE 25MG TABLET PO SCH ×2 (08:55→21:11)
[2019-12-16 09:06] LABS: BG BASE EXCESS -4.6 mmol/L (-2.0-2.0); BG CARBOXYHEMOGLOBIN 1.5 % (0.5-1.5); BG DEOXYHEMOGLOBIN 32.9 % (0.0-5.0); BG FRACTION INSPIRED OXYGEN 100; BG METHEMOGLOBIN 0.4 % (0.0-1.5); BG OXYGEN SATURATION 66.5 % (92.0-98.5); BG OXYHEMOGLOBIN 65.2 % (94.0-97.0); BG PCO2 84.1 mmHg (35.0-45.0); BG PH 7.108 (7.350-7.450); BG PO2 41.8 mmHg (75.0-100.0); BG SAMPLE SITE RIGHT RADIAL; BG TIDAL VOLUME(mL) 550 mL; BG TOTAL HEMOGLOBIN 10.5 g/dL (12.0-18.0); BG VENT MODE VENT- PRVC; BG VENT RATE 20 set
[2019-12-16] MEDS: SODIUM CHLORIDE 0.9% 1,000 ML IV SCH (13:15)
[2019-12-17] VITALS (83 sets, daily range): BP systolic 56–144; BP diastolic 19–94
[2019-12-17] MEDS: ALBUTEROL 6.7GM HFA INHALER ORI SCH ×5 (03:45→20:25)
[2019-12-17] MEDS: FENTANYL CITRATE/PF 2,500 MCG in SODIUM CHLORIDE 0.9% 200 ML IV PRN ×2 (04:19→17:33)
[2019-12-17] MEDS: SODIUM CHLORIDE 0.9% 1,000 ML IV SCH ×2 (04:44→17:32)
[2019-12-17] MEDS: MIDODRINE HCL 5MG TABLET PO SCH ×3 (06:54→21:22)
[2019-12-17] MEDS: METOCLOPRAMIDE HCL 10MG/2ML VIAL IV SCH ×3 (06:54→18:00)
[2019-12-17] MEDS: PANTOPRAZOLE SODIUM 40 MG/VIAL IV SCH (08:56)
[2019-12-17] MEDS: MULTIVITAMINS,THER W-MINERALS TABLET NG SCH (08:56)
[2019-12-17] MEDS: FLUDROCORTISONE ACETATE 0.1MG TABLET PO SCH (08:56)
[2019-12-17] MEDS: PHENYLEPHRINE 80 MG in DEXT 5% WATER 492 ML IV PRN ×2 (08:57→22:35)
[2019-12-17] MEDS: METOPROLOL TARTRATE 25MG TABLET PO SCH ×2 (08:58→19:51)
[2019-12-17] MEDS: NOREPINEPHRINE 16 MG in DEXT 5% WATER 234 ML IV PRN ×2 (08:58→20:38)
[2019-12-17] MEDS: ENOXAPARIN 100MG/ML SYR SUBCUT SCH ×2 (08:58→21:22)
[2019-12-17] MEDS: DOCUSATE SODIUM SUGAR FREE 100MG/10ML UDC NG SCH (08:58)
[2019-12-17] MEDS ORDERED: FENTANYL CITRATE/PF 2,500 MCG in SODIUM CHLORIDE 0.9% 200 ML IV PRN (17:15)
[2019-12-17] MEDS ORDERED: MIDAZOLAM HCL 100 MG in DEXT 5% WATER 80 ML IV PRN (17:15)
[2019-12-17 17:22] LABS: HEMATOCRIT. 30.1 % (36.0-48.0); HEMOGLOBIN. 9.9 g/dL (12.0-16.0); MEAN CORPUSCULAR HEMOGLOBIN 32.3 pg (28.0-32.0); MEAN CORPUSCULAR VOLUME 98.2 fL (81.0-99.0); MEAN PLATELET VOLUME 7.9 fl (7.4-10.4); PLATELET 330 x1000/uL (130-400); RED BLOOD CELL COUNT 3.07 mill/uL (4.2-5.4); RED CELL DISTRIBUTION WIDTH 15.5 % (11.6-14.6)
[2019-12-17 18:29] LABS: NUCLEATED RED BLOOD CELLS 18 /100 WBC
[2019-12-17 18:30] LABS: PLATELET ESTIMATE NORMAL
[2019-12-17] MEDS: MIDAZOLAM HCL 100 MG in DEXT 5% WATER 80 ML IV PRN (19:52)
[2019-12-18] VITALS (60 sets, daily range): BP systolic 42–143; BP diastolic 24–77
[2019-12-18] MEDS: METOCLOPRAMIDE HCL 10MG/2ML VIAL IV SCH ×4 (00:24→17:33)
[2019-12-18] MEDS: ALBUTEROL 6.7GM HFA INHALER ORI SCH ×5 (00:40→16:08)
[2019-12-18] MEDS: SODIUM CHLORIDE 0.9% 1,000 ML IV SCH ×2 (04:25→17:35)
[2019-12-18] MEDS: MIDODRINE HCL 5MG TABLET PO SCH ×2 (06:02→13:30)
[2019-12-18] MEDS: FENTANYL CITRATE/PF 2,500 MCG in SODIUM CHLORIDE 0.9% 200 ML IV PRN (06:30)
[2019-12-18] MEDS: NOREPINEPHRINE 16 MG in DEXT 5% WATER 234 ML IV PRN (08:27)
[2019-12-18] MEDS: PHENYLEPHRINE 80 MG in DEXT 5% WATER 492 ML IV PRN (08:40)
[2019-12-18] MEDS: ENOXAPARIN 100MG/ML SYR SUBCUT SCH (08:51)
[2019-12-18] MEDS: MULTIVITAMINS,THER W-MINERALS TABLET NG SCH (08:51)
[2019-12-18] MEDS: DOCUSATE SODIUM SUGAR FREE 100MG/10ML UDC NG SCH (08:51)
[2019-12-18] MEDS: FLUDROCORTISONE ACETATE 0.1MG TABLET PO SCH (08:51)
[2019-12-18] MEDS: PANTOPRAZOLE SODIUM 40 MG/VIAL IV SCH (08:51)
[2019-12-18] MEDS: METOPROLOL TARTRATE 25MG TABLET PO SCH (08:52)
== END 2019-12-18 20:42 | disposition expired | DRG 4 ==
LOC: ER 08:45 → 7WST 10:22 → EDBEDREQ 10:36 → EDBEDREQSVC 10:36 → ENRESERV 11-15 11:20 → MICUNO 11-19 11:41 → MICUSO 11-26 13:09
PROVIDERS: ADMIT Internal Medicine; ATTEND Internal Medicine
PROC: 5A1955Z Respiratory Ventilation, Greater than 96 Consecutive Hours (ICD-10-PCS; principal; 2019-11-19)
PROC: 05HY33Z Insertion of Infusion Device into Upper Vein, Percutaneous Approach (ICD-10-PCS; 2019-11-19)
PROC: B54MZZA Ultrasonography of Right Upper Extremity Veins, Guidance (ICD-10-PCS; 2019-11-19)
PROC: 0BH17EZ Insertion of Endotracheal Airway into Trachea, Via Natural or Artificial Opening (ICD-10-PCS; 2019-11-19)
PROC: 30233N1 Transfusion of Nonautologous Red Blood Cells into Peripheral Vein, Percutaneous Approach (ICD-10-PCS; 2019-11-21)
PROC: 0B113F4 Bypass Trachea to Cutaneous with Tracheostomy Device, Percutaneous Approach (ICD-10-PCS; 2019-12-09)
PROC: 0GBJ0ZZ Excision of Thyroid Gland Isthmus, Open Approach (ICD-10-PCS; 2019-12-09)
DX: A41.89 Other specified sepsis (principal); U07.1 COVID-19; N17.0 Acute kidney failure with tubular necrosis; R65.21 Severe sepsis with septic shock; J12.89 Other viral pneumonia; E44.0 Moderate protein-calorie malnutrition; J96.01 Acute respiratory failure with hypoxia; D72.810 Lymphocytopenia; I10 Essential (primary) hypertension; N39.0 Urinary tract infection, site not specified; J98.2 Interstitial emphysema; J93.83 Other pneumothorax; Z16.12 Extended spectrum beta lactamase (ESBL) resistance; Z66 Do not resuscitate; B96.89 Other specified bacterial agents as the cause of diseases classified elsewhere; B97.89 Other viral agents as the cause of diseases classified elsewhere; Z99.11 Dependence on respirator [ventilator] status; Z68.36 Body mass index [BMI] 36.0-36.9, adult; Z78.1 Physical restraint status
CPT/HCPCS: 36415; 36600; 71045; 74018; 76937; 80048; 80053; 81003; 82375; 82550; 82728; 82805; 82962; 83036; 83605; 83615; 83735; 83880; 84100; 84145; 84478; 84484; 85025; 85379; 86140; 86850; 86900; 86927; 87076; 87186; 87635; 93005; 94003; 94640; 99291; C1725; C9113; J0696; J1650; J2185; J2250; J2270; J2370; J2543; J2704; J2765; J2920; J3010; J3370; J3480; J3490; J7030; J7050; J7060; P9017; P9047; Q9957; U0003-CS